=== PATIENT | female | born 1930 | race Caucasian/White ===

== ENCOUNTER → 2016-08-02 | Outpatient (REF) ==
[~2016-08-02] MED LIST: ADALAT CC30 MG PO; ALDACTONE 25MG25 M1 PO; AMLODIPINE10 MG PO; ANTIVERT 12.512.5 MG PO; ASPI325T6 PO; ASPIR-LOW81 MG PO; ASPIRIN 32325 MG/TAB PO; ASPIRIN 81M81 MG/TA2 PO; ASPIRIN E.C. 8181 MG PO; ATARAX 25MG25 MG/TAB PO; ATIVAN 0.50.5 MG/TAB PO; ATIVAN 1MG T1 MG/TAB PO; ATORVASTATIN; AVANDIA; BENADRYL25 M2 PO; BONIVA1 MG/ML MR; CEPHALEXIN500 M1 PO; CIPRO 500MG TA500 MG PO; CORDARONE200 MG/TAB PO; COZAAR 50MG50 MG/TAB PO; COZAAR100 MG PO; CRESTOR 10MG10 MG PO; DARVOCET N; DARVOCET-N-101 UDTAB PO; DRISDOL50000 IU PO; EPA FISH OIL1000 MG PO; ESTRACE0.1 MG/GM VG; FERRO-TIME325 MG PO; FLONASEALLERGY NS; FUROSEMIDE; HYDROXYZINE PAM25 MG PO; INFANTS AQU400 IU/ML PO; IRON325 M1 PO; KLONOPIN 1MG1 MG PO; LASIX 20MG TABL20 MG PO; LIPITOR 40MG TA40 MG PO; LISINOPRIL; LORAZEPAM0.5 MG PO; MACRODANTIN100 PO; MULTIPLE VITAMI1 CAP PO; MVI; NITROSTAT0.4 MG/TAB SL; NORCO 325 MG-51 TAB PO; NORVASC 10MG10 MG PO; NORVASC 5MG5 MG/TAB PO; OCCUVITE PO; OSCAL 500 TAB500 MG PO; PERCOCET 325 MG1 TA2 PO; PHENOBARBITAL PO; PHENOBARBITAL100 M1 PO; PHENOBARBITAL15 MG PO; PHENOBARBITAL16.2 MG PO; PHENOBARBITOL; PLAVIX 75MG TAB75 MG PO; PRILOSEC 20MG20 MG PO; PROBIOTIC FORMU1 CAP PO; RANEXA 500MG T500 MG PO; SENOKOT S 50 MG1 TAB PO; STOOL SOFTENER100 M2 PO; SYNTHROID 0.0.025 MG PO; TAZTIA180 PO; TOPROL XL 25MG25 MG PO; TOPROL XL 50MG50 MG PO; TRAMADOL; ULTRAM 50MG TAB50 MG PO; VISTARIL 2525 MG/CAP PO; VITAMIN C500 MG PO; VITAMIN D 50,1.25 MG PO; VITAMIN D PO; ZEBETA10 MG PO; ZESTRIL40 MG PO; ZOCOR 20MG20 MG PO; ZOCOR 40MG40 MG PO; hycosamine
== END ==
LOC: ZLAB.WCH 15:47
DX: Z01.89 Encounter for other specified special examinations (principal)

== ENCOUNTER → 2016-08-17 | Outpatient (CLI) | payer MEDICARE, BC ==
[2016-08-17 12:32] LABS: BASO % 0.6 % (0.0-2.0); EOS # 0.1 (0.0-0.7); EOS % 2.2 % (0-4.0); GRAN # 3.6 (1.4-6.5); GRAN % 69.7 % (42.2-75.2); HEMATOCRIT 41.1 % (37.0-47.0); HEMOGLOBIN 13.3 g/dl (12.5-16.0); LYMPH # 1.1 (1.2-3.4); MEAN CELL VOLUME 93 fl (80.0-100.0); MEAN CORPUSCULAR HEMOGLOBIN 30 pg (27.0-31.0); MEAN CORPUSCULAR HGB CONC 32 g/dl (33.0-37.0); MEAN PLATELET VOLUME 11.2 fl (7.4-10.4); MONO # 0.3 (0.1-0.6); MONO % 6.1 % (1.7-9.3); PLATELET COUNT 227 K/mm3 (130-400); RED BLOOD COUNT 4.43 M/mm3 (4.10-5.30); REDCELL DISTRIBUTION WIDTH-CV 13.6 % (11.5-14.5); WHITE BLOOD COUNT 5.1 K/mm3 (4.8-10.8)
[2016-08-17 12:38] LABS: PROTHROMBIN TIME 11.6 SECONDS (9.7-12.8)
[2016-08-17 12:42] LABS: ADJUSTED CALCIUM 9.5 mg/dL (8.4-10.2); ALBUMIN 4.1 gm/dL (3.5-5.0); BILIRUBIN,TOTAL 0.9 mg/dL (0.0-1.0); CALCIUM 9.6 mg/dL (8.4-10.2); CREATININE, serum 1.07 mg/dL (0.52-1.25); MAGNESIUM 1.9 mg/dL (1.6-2.3); POTASSIUM 4.1 mmol/L (3.4-5.0); TOTAL PROTEIN 7.4 gm/dL (6.4-8.2)
[2016-08-17 13:14] LABS: THYROID STIMULATING HORMONE 6.34 uIU/mL (0.465-4.680)
== END ==
LOC: COL.RAD 10:33
PROVIDERS: Internal Medicine
DX: Z01.818 Encounter for other preprocedural examination (principal); M17.12 Unilateral primary osteoarthritis, left knee; E03.4 Atrophy of thyroid (acquired); I51.7 Cardiomegaly

== ENCOUNTER → 2016-08-19 | Outpatient (REF) | LOC: ZLAB.WCH 16:43 | DX: Z01.89 Encounter for other specified special examinations (principal) ==

== ENCOUNTER → 2016-08-22 | Outpatient (REF) | LOC: ZLAB.WCH 15:17 | DX: Z01.89 Encounter for other specified special examinations (principal) ==

== ENCOUNTER 2016-09-02 13:34 | Emergency (ER) | payer MEDICARE, BC ==
[2006-07-04 08:06] VITALS: BP 131/66
[~2016-09-02] VITALS: Ht 160 cm; Wt 60.9 kg
[~2016-09-02 13:34] MED LIST changes: -ADALAT CC30 MG PO; -ANTIVERT 12.512.5 MG PO; -ASPIRIN E.C. 8181 MG PO; -PLAVIX 75MG TAB75 MG PO; -SYNTHROID 0.0.025 MG PO; -ZOCOR 20MG20 MG PO
[2016-09-02 13:37] VITALS: TEMP 97.3
[2016-09-02 15:57] LABS: BASO % 0.6 % (0.0-2.0); EOS # 0.2 (0.0-0.7); GRAN # 3.6 (1.4-6.5); GRAN % 71.1 % (42.2-75.2); LYMPH # 0.7 (1.2-3.4); LYMPH % 14.2 % (20.0-51.0); MEAN CELL VOLUME 93 fl (80.0-100.0); MEAN CORPUSCULAR HGB CONC 32 g/dl (33.0-37.0); MEAN PLATELET VOLUME 9.8 fl (7.4-10.4); MONO # 0.5 (0.1-0.6); MONO % 9.9 % (1.7-9.3); PLATELET COUNT 191 K/mm3 (130-400); RED BLOOD COUNT 3.74 M/mm3 (4.10-5.30); WHITE BLOOD COUNT 5.1 K/mm3 (4.8-10.8)
[2016-09-02 15:59] LABS: HEMATOCRIT 34.9 % (37.0-47.0); HEMOGLOBIN 11.2 g/dl (12.5-16.0); MEAN CORPUSCULAR HEMOGLOBIN 30 pg (27.0-31.0)
[2016-09-02 16:07] LABS: ADJUSTED CALCIUM 9.7 mg/dL (8.4-10.2); ALBUMIN 3.6 gm/dL (3.5-5.0); CALCIUM 9.4 mg/dL (8.4-10.2); CREATININE, serum 1.17 mg/dL (0.52-1.25); TOTAL PROTEIN 6.7 gm/dL (6.4-8.2)
[2016-09-02 18:11] LABS: PH 6 (5-8); SQUAMOUS EPITHELIAL 0-2 /hpf; URINE APPEARANCE Clear; URINE BACTERIA None Seen /hpf; URINE BILIRUBIN Negative (NEGATIVE); URINE BLOOD Negative (NEGATIVE); URINE COLOR Yellow; URINE GLUCOSE Negative (NEGATIVE); URINE KETONE Negative (NEGATIVE); URINE RBC 0-2 /hpf; URINE UROBILINOGEN Negative (NEGATIVE)
[2016-09-02] MEDS ORDERED: SYNTHROID 0.0.025 MG PO (18:11)
[2016-09-02] MEDS ORDERED: COZAAR100 MG PO (18:11)
[2016-09-02] MEDS ORDERED: CORDARONE200 MG/TAB PO (18:12)
[2016-09-02] MEDS ORDERED: ADALAT CC30 MG PO (18:13)
[2016-09-02] MEDS ORDERED: BENADRYL25 M2 PO (18:13)
[2016-09-02] MEDS ORDERED: ZOCOR 20MG20 MG PO (18:14)
[2016-09-02] MEDS ORDERED: ANTIVERT 12.512.5 MG PO (18:45)
[2016-09-02 19:07] VITALS: BP 149/70; PULSE 67
== END 2016-09-02 19:05 | disposition home or self-care (01) ==
LOC: COL.ER 13:34
PROVIDERS: Emergency Medicine
DX: E86.0 Dehydration (principal); R42 Dizziness and giddiness; R53.1 Weakness; Z91.81 History of falling; Z96.652 Presence of left artificial knee joint; I10 Essential (primary) hypertension; I25.10 Atherosclerotic heart disease of native coronary artery without angina pectoris; Z95.1 Presence of aortocoronary bypass graft; Z87.891 Personal history of nicotine dependence; Z95.0 Presence of cardiac pacemaker
CPT/HCPCS: J7040

== ENCOUNTER 2016-10-12 08:19 | Emergency (ER) | payer MEDICARE, BC ==
[2006-07-04 08:06] VITALS: BP 131/66
[~2016-10-12] VITALS: Ht 160 cm; Wt 60.5 kg
[~2016-10-12 08:19] MED LIST changes: +ADALAT CC30 MG PO; +ANTIVERT 12.512.5 MG PO; +SYNTHROID 0.0.025 MG PO; +ZOCOR 20MG20 MG PO
[2016-10-12 08:24] VITALS: TEMP 97.6
[2016-10-12 09:01] LABS: BASO % 0.5 % (0.0-2.0); EOS # 0.2 (0.0-0.7); EOS % 4.7 % (0-4.0); GRAN # 2.4 (1.4-6.5); GRAN % 64.9 % (42.2-75.2); LYMPH # 0.8 (1.2-3.4); LYMPH % 20.9 % (20.0-51.0); MEAN CELL VOLUME 95 fl (80.0-100.0); MEAN CORPUSCULAR HGB CONC 32 g/dl (33.0-37.0); MEAN PLATELET VOLUME 10.4 fl (7.4-10.4); MONO # 0.3 (0.1-0.6); MONO % 8.5 % (1.7-9.3); PLATELET COUNT 145 K/mm3 (130-400); RED BLOOD COUNT 3.87 M/mm3 (4.10-5.30); WHITE BLOOD COUNT 3.6 K/mm3 (4.8-10.8)
[2016-10-12 09:08] LABS: HEMATOCRIT 36.7 % (37.0-47.0); HEMOGLOBIN 11.6 g/dl (12.5-16.0); MEAN CORPUSCULAR HEMOGLOBIN 30 pg (27.0-31.0)
[2016-10-12 09:16] LABS: ADJUSTED CALCIUM 9.4 mg/dL (8.4-10.2); ALANINE AMINOTRANSFERASE 44 U/L (9-52); ALBUMIN 3.7 gm/dL (3.5-5.0); ALKALINE PHOSPHATASE 95 U/L (50-136); ANION GAP 10 mmol/L (7-16); BILIRUBIN,TOTAL 0.8 mg/dL (0.0-1.0); BLOOD UREA NITROGEN 25 mg/dL (7-17); CALCIUM 9.2 mg/dL (8.4-10.2); CARBON DIOXIDE 28 mmol/L (22-30); CHLORIDE 102 mmol/L (98-107); CREATININE, serum 1.05 mg/dL (0.52-1.25); GLUCOSE 103 mg/dL (74-106); POTASSIUM 3.7 mmol/L (3.4-5.0); SODIUM 140 mmol/L (137-145); TOTAL PROTEIN 6.6 gm/dL (6.4-8.2)
[2016-10-12 09:26] LABS: TROPONIN-I < 0.012 ng/mL (0.000-0.034)
[2016-10-12 12:00] VITALS: BP 182/92; PULSE 73
== END 2016-10-12 13:00 | disposition home or self-care (01) ==
LOC: COL.ER 08:19
PROVIDERS: Physician Assistant
DX: S01.411A Laceration without foreign body of right cheek and temporomandibular area, initial encounter (principal); S00.83XA Contusion of other part of head, initial encounter; W18.39XA Other fall on same level, initial encounter; Y92.009 Unspecified place in unspecified non-institutional (private) residence as the place of occurrence of the external cause; I10 Essential (primary) hypertension

== ENCOUNTER → 2016-10-19 | Emergency (ER) | payer MEDICARE, BC ==
[~2016-10-19] MED LIST changes: +ASPIRIN E.C. 8181 MG PO; +PLAVIX 75MG TAB75 MG PO
[2016-10-19 11:10] VITALS: BP 136/89; PULSE 82
== END ==
LOC: COL.ER 10:12
DX: Z48.02 Encounter for removal of sutures (principal)

== ENCOUNTER → 2016-12-05 | Outpatient (CLI) | payer MEDICARE, BC | LOC: COL.RAD 07:37 | DX: M25.78 Osteophyte, vertebrae (principal) ==

== ENCOUNTER 2016-12-06 10:30 | Outpatient (RCR) | payer MEDICARE, BC ==
[~2016-12-06 10:30] MED LIST changes: -ASPIRIN E.C. 8181 MG PO; -PLAVIX 75MG TAB75 MG PO
[2016-12-19] MEDS ORDERED: ASPIRIN E.C. 8181 MG PO (10:12)
[2016-12-28] MEDS ORDERED: PLAVIX 75MG TAB75 MG PO (13:09)
== END 2017-02-14 | disposition still patient (30) ==
LOC: MKS.ESL.PT
DX: R42 Dizziness and giddiness (principal); R26.81 Unsteadiness on feet; R26.89 Other abnormalities of gait and mobility
CPT/HCPCS: G8990-GP; G8991-GP

== ENCOUNTER → 2016-12-13 | Outpatient (CLI) | payer MEDICARE, BC ==
[~2016-12-13] MED LIST changes: +ASPIRIN E.C. 8181 MG PO; +PLAVIX 75MG TAB75 MG PO
== END ==
LOC: MHCPAIN 09:28
DX: G89.29 Other chronic pain (principal); M47.817 Spondylosis without myelopathy or radiculopathy, lumbosacral region; M54.16 Radiculopathy, lumbar region; M53.3 Sacrococcygeal disorders, not elsewhere classified; M96.1 Postlaminectomy syndrome, not elsewhere classified
CPT/HCPCS: G0463

== ENCOUNTER → 2016-12-15 | Outpatient (CLI) | payer MEDICARE, BC | LOC: MHCPAIN 09:19 | DX: M53.3 Sacrococcygeal disorders, not elsewhere classified (principal) | CPT/HCPCS: G0260; J1040; Q9967 ==

== ENCOUNTER → 2016-12-21 | Outpatient (CLI) | payer MEDICARE, BC ==
[2006-07-04 08:06] VITALS: BP 131/66
[~2016-12-21] VITALS: Ht 160 cm; Wt 61.4 kg
== END ==
LOC: COL.RAD 12-15 09:12
DX: Z53.9 Procedure and treatment not carried out, unspecified reason (principal)

== ENCOUNTER → 2016-12-28 | Outpatient (CLI) | payer MEDICARE, BC ==
[2006-07-04 08:06] VITALS: BP 131/66
[~2016-12-28] VITALS: Ht 160 cm; Wt 57.6 kg
[2016-12-28 13:16] VITALS: BP 155/67; PULSE 77
[2016-12-28 14:50] VITALS: BP 151/45; PULSE 63
[2016-12-28 14:57] VITALS: BP 136/43; PULSE 65
[2016-12-28 15:15] VITALS: BP 139/45; PULSE 67
[2016-12-28 15:30] VITALS: BP 130/56; PULSE 63
== END ==
LOC: COL.RAD 12:51
DX: M47.816 Spondylosis without myelopathy or radiculopathy, lumbar region (principal); M48.06 Spinal stenosis, lumbar region; M51.36 Other intervertebral disc degeneration, lumbar region
CPT/HCPCS: Q9965

== ENCOUNTER → 2017-01-16 | Outpatient (CLI) | payer MEDICARE, BC | LOC: MHCPAIN 09:35 | DX: G89.29 Other chronic pain (principal); M47.817 Spondylosis without myelopathy or radiculopathy, lumbosacral region; M54.16 Radiculopathy, lumbar region; M53.3 Sacrococcygeal disorders, not elsewhere classified; M96.1 Postlaminectomy syndrome, not elsewhere classified | CPT/HCPCS: G0463 ==

== ENCOUNTER → 2017-01-26 | Outpatient (CLI) | payer MEDICARE, BC | LOC: MHCPAIN 08:13 | DX: M54.16 Radiculopathy, lumbar region (principal) | CPT/HCPCS: J1040; J1100; Q9967 ==

== ENCOUNTER → 2017-02-15 | Outpatient (CLI) | payer MEDICARE, BC | LOC: MHCPAIN 10:28 | DX: G89.29 Other chronic pain (principal); M47.817 Spondylosis without myelopathy or radiculopathy, lumbosacral region; M54.16 Radiculopathy, lumbar region; M53.3 Sacrococcygeal disorders, not elsewhere classified; M96.1 Postlaminectomy syndrome, not elsewhere classified; Z87.891 Personal history of nicotine dependence | CPT/HCPCS: G0463 ==

== ENCOUNTER → 2017-04-26 | Outpatient (CLI) | payer MEDICARE, BC | LOC: MHCPAIN 12:13 | DX: G89.29 Other chronic pain (principal); M47.817 Spondylosis without myelopathy or radiculopathy, lumbosacral region; M54.16 Radiculopathy, lumbar region; M53.3 Sacrococcygeal disorders, not elsewhere classified; M96.1 Postlaminectomy syndrome, not elsewhere classified | CPT/HCPCS: G0463 ==

== ENCOUNTER → 2017-05-24 | Outpatient (CLI) | payer MEDICARE, BC | LOC: MHCPAIN 13:11 | DX: G89.29 Other chronic pain (principal); M47.27 Other spondylosis with radiculopathy, lumbosacral region; M53.3 Sacrococcygeal disorders, not elsewhere classified; M96.1 Postlaminectomy syndrome, not elsewhere classified; Z87.891 Personal history of nicotine dependence; Z79.82 Long term (current) use of aspirin | CPT/HCPCS: G0463 ==

== ENCOUNTER → 2017-08-22 | Outpatient (CLI) | payer MEDICARE, BC | LOC: MHCPAIN 13:13 | DX: G89.29 Other chronic pain (principal); M47.27 Other spondylosis with radiculopathy, lumbosacral region; M53.3 Sacrococcygeal disorders, not elsewhere classified; M96.1 Postlaminectomy syndrome, not elsewhere classified; Z87.891 Personal history of nicotine dependence | CPT/HCPCS: G0463 ==

== ENCOUNTER 2017-08-28 13:54 | Outpatient (CLI) | payer MEDICARE, BC ==
[2006-07-04 08:06] VITALS: BP 131/66
[2017-08-28 15:51] VITALS: BP 166/57; PULSE 59; TEMP 97.5
== END 2017-08-28 16:09 | disposition home or self-care (01) ==
LOC: EUO 13:54
DX: N18.3 Chronic kidney disease, stage 3 (moderate) (principal); D63.1 Anemia in chronic kidney disease; Z88.5 Allergy status to narcotic agent; Z88.2 Allergy status to sulfonamides; Z88.8 Allergy status to other drugs, medicaments and biological substances; Z79.82 Long term (current) use of aspirin; Z79.891 Long term (current) use of opiate analgesic
CPT/HCPCS: J2916

== ENCOUNTER → 2017-09-21 | Outpatient (CLI) | payer MEDICARE, BC | LOC: MHCPAIN 08:20 | DX: M47.817 Spondylosis without myelopathy or radiculopathy, lumbosacral region (principal) | CPT/HCPCS: J1040; Q9967 ==

== ENCOUNTER → 2017-12-19 | Outpatient (REF) ==
[2017-12-19 15:27] LABS: THYROID STIMULATING HORMONE 0.608 uIU/mL (0.465-4.680)
== END ==
LOC: ZLAB.WCH 14:24
PROVIDERS: Nurse Practitioner Family
DX: Z01.89 Encounter for other specified special examinations (principal)

== ENCOUNTER → 2017-12-28 | Outpatient (REF) ==
[2017-12-28 14:25] LABS: IRON,SERUM 40 ug/dL (35-150)
[2017-12-28 14:34] LABS: TOTAL IRON BINDING CAPACITY 390 ug/dL (265-497)
[2017-12-28 15:02] LABS: FERRITIN 27 ng/mL (11-264)
== END ==
LOC: ZLAB.WCH 14:13
PROVIDERS: Internal Medicine
DX: Z01.89 Encounter for other specified special examinations (principal)

== ENCOUNTER 2018-01-23 14:54 | Outpatient (CLI) | payer MEDICARE, BC ==
[2006-07-04 08:06] VITALS: BP 131/66
[~2018-01-23] VITALS: Ht 160 cm; Wt 58.0 kg
[2018-01-23 15:23] VITALS: BP 157/59; PULSE 61; TEMP 98.1
[2018-01-23] MEDS ORDERED: BYSTOLIC10 MG PO (15:51)
[2018-01-23] MEDS ORDERED: NORCO 325 MG-51 TAB PO (15:52)
[2018-01-23] MEDS ORDERED: MIRALAX PA17 GM/Dose PO (15:52)
[2018-01-23] MEDS ORDERED: FERRO-TIME325 MG PO (15:53)
[2018-01-23] MEDS ORDERED: NEURONTIN300 MG/CAP PO (15:54)
[2018-01-23] MEDS ORDERED: ATIVAN 0.50.5 MG/TAB PO (15:58)
[2018-01-23] MEDS ORDERED: VTAMINC250TA (16:01)
[2018-01-23] MEDS ORDERED: D3-5050000 IU (16:02)
[2018-01-23] MEDS ORDERED: APRESOLINE 25MG25 MG PO (16:03)
[2018-01-23] MEDS ORDERED: FLONASEALLERGY NS (16:03)
[2018-01-23] MEDS ORDERED: CARDIZEM CD 24240 MG PO (16:03)
[2018-01-23] MEDS ORDERED: PRESERVISION1 SGL PO (16:04)
== END 2018-01-23 17:27 | disposition home or self-care (01) ==
LOC: EUO 14:54
DX: M81.0 Age-related osteoporosis without current pathological fracture (principal)
CPT/HCPCS: J3489

== ENCOUNTER 2018-01-25 08:13 | Emergency (ER) | payer MEDICARE, BC ==
[2006-07-04 08:06] VITALS: BP 131/66
[~2018-01-25] VITALS: Ht 160 cm; Wt 56.4 kg
[~2018-01-25 08:13] MED LIST changes: +APRESOLINE 25MG25 MG PO; +BYSTOLIC10 MG PO; +CARDIZEM CD 24240 MG PO; +D3-5050000 IU; +MIRALAX PA17 GM/Dose PO; +NEURONTIN300 MG/CAP PO; +PRESERVISION1 SGL PO; +VTAMINC250TA
[2018-01-25 08:15] VITALS: TEMP 98.3
[2018-01-25 09:03] LABS: MEAN CELL VOLUME 94 fl (80.0-100.0); MEAN CORPUSCULAR HGB CONC 32 g/dl (33.0-37.0); MEAN PLATELET VOLUME 9.6 fl (7.4-10.4); PLATELET COUNT 120 K/mm3 (130-400); RED BLOOD COUNT 3.14 M/mm3 (4.10-5.30); REDCELL DISTRIBUTION WIDTH-CV 14.7 % (11.5-14.5)
[2018-01-25 09:04] LABS: HEMATOCRIT 29.4 % (37.0-47.0); HEMOGLOBIN 9.3 g/dl (12.5-16.0); MEAN CORPUSCULAR HEMOGLOBIN 30 pg (27.0-31.0)
[2018-01-25 09:09] LABS: INR 0.9 (0.8-3.0); PROTHROMBIN TIME 10.5 SECONDS (9.7-12.8)
[2018-01-25 09:12] LABS: PARTIAL THROMBOPLASTIN TIME 32.4 SECONDS (26.0-37.0)
[2018-01-25 09:16] LABS: ALANINE AMINOTRANSFERASE 23 U/L (9-52); ALBUMIN 3.4 gm/dL (3.5-5.0); ALKALINE PHOSPHATASE 59 U/L (50-136); ANION GAP 7 mmol/L (7-16); AST,SGOT 22 U/L (15-37); BILIRUBIN,TOTAL 0.3 mg/dL (0.0-1.0); BLOOD UREA NITROGEN 25 mg/dL (7-17); C-REACTIVE PROTEIN 0.8 mg/dL (0.0-0.9); CALCIUM 8.9 mg/dL (8.4-10.2); CARBON DIOXIDE 27 mmol/L (22-30); CHLORIDE 98 mmol/L (98-107); CREATININE, serum 1.23 mg/dL (0.52-1.25); GLUCOSE 131 mg/dL (74-106); POTASSIUM 4.2 mmol/L (3.4-5.0); SODIUM 132 mmol/L (137-145); TOTAL PROTEIN 6.1 gm/dL (6.4-8.2)
[2018-01-25 09:27] LABS: TROPONIN-I < 0.012 ng/mL (0.000-0.034)
[2018-01-25 10:16] LABS: COLLECTION METHOD CLEAN CATCH
[2018-01-25 10:27] LABS: PH 6 (5-8); SQUAMOUS EPITHELIAL 0-2 /hpf; URINE APPEARANCE Clear; URINE BACTERIA None Seen /hpf; URINE BILIRUBIN Negative (NEGATIVE); URINE BLOOD Negative (NEGATIVE); URINE COLOR Amber; URINE GLUCOSE Negative (NEGATIVE); URINE KETONE Negative (NEGATIVE); URINE LEUKOCYTE ESTERASE Negative (NEGATIVE); URINE NITRATE Positive (NEGATIVE); URINE PROTEIN(semi-quant) 2+ (NEGATIVE); URINE RBC 0-2 /hpf; URINE UROBILINOGEN >=4.0 mg/dL (NEGATIVE)
[2018-01-25 13:03] LABS: BASO % 0.5 % (0.0-2.0); EOS # 0.1 (0.0-0.7); EOS % 1.4 % (0-4.0); GRAN # 3.3 (1.4-6.5); GRAN % 78.7 % (42.2-75.2); LYMPH # 0.5 (1.2-3.4); LYMPH % 11.1 % (20.0-51.0); MEAN CELL VOLUME 94 fl (80.0-100.0); MEAN CORPUSCULAR HGB CONC 32 g/dl (33.0-37.0); MEAN PLATELET VOLUME 9.2 fl (7.4-10.4); MONO # 0.3 (0.1-0.6); MONO % 8.1 % (1.7-9.3); PLATELET COUNT 121 K/mm3 (130-400); RED BLOOD COUNT 3.26 M/mm3 (4.10-5.30); REDCELL DISTRIBUTION WIDTH-CV 14.6 % (11.5-14.5)
[2018-01-25 13:05] LABS: HEMATOCRIT 30.5 % (37.0-47.0); HEMOGLOBIN 9.7 g/dl (12.5-16.0); MEAN CORPUSCULAR HEMOGLOBIN 30 pg (27.0-31.0)
[2018-01-25 15:29] VITALS: BP 147/77; PULSE 69
[2018-01-25] MEDS ORDERED: NORCO 325 MG-51 TAB PO (15:56)
== END 2018-01-25 16:18 | disposition home or self-care (01) ==
LOC: COL.ER 08:13
PROVIDERS: Emergency Medicine; Physician Assistant
DX: M25.511 Pain in right shoulder (principal); M54.2 Cervicalgia; E78.5 Hyperlipidemia, unspecified; K21.9 Gastro-esophageal reflux disease without esophagitis; M19.90 Unspecified osteoarthritis, unspecified site; I10 Essential (primary) hypertension; I25.10 Atherosclerotic heart disease of native coronary artery without angina pectoris; I73.9 Peripheral vascular disease, unspecified; Z79.02 Long term (current) use of antithrombotics/antiplatelets; Z90.49 Acquired absence of other specified parts of digestive tract; Z90.89 Acquired absence of other organs; Z87.891 Personal history of nicotine dependence

== ENCOUNTER → 2018-02-09 | Outpatient (CLI) | payer MEDICARE, BC | LOC: COL.RAD 13:38 | DX: M75.121 Complete rotator cuff tear or rupture of right shoulder, not specified as traumatic (principal); M62.511 Muscle wasting and atrophy, not elsewhere classified, right shoulder; M89.311 Hypertrophy of bone, right shoulder; Z95.0 Presence of cardiac pacemaker ==

== ENCOUNTER 2018-03-27 13:43 | Inpatient (IN) | payer MEDICARE, BC ==
[~2018-03-27] VITALS: Ht 160 cm; Wt 54.8 kg
[2018-03-27 15:02] LABS: BASO % 0.3 % (0.0-2.0); EOS % 0.8 % (0-4.0); GRAN # 2.7 (1.4-6.5); HEMOGLOBIN 10.2 g/dl (12.5-16.0); LYMPH # 0.6 (1.2-3.4); LYMPH % 16.5 % (20.0-51.0); MEAN CELL VOLUME 87 fl (80.0-100.0); MEAN CORPUSCULAR HEMOGLOBIN 28 pg (27.0-31.0); MEAN CORPUSCULAR HGB CONC 32 g/dl (33.0-37.0); MEAN PLATELET VOLUME 9.4 fl (7.4-10.4); MONO # 0.4 (0.1-0.6); MONO % 10.1 % (1.7-9.3); PLATELET COUNT 148 K/mm3 (130-400); RED BLOOD COUNT 3.69 M/mm3 (4.10-5.30); REDCELL DISTRIBUTION WIDTH-CV 13.9 % (11.5-14.5)
[2018-03-27 15:05] LABS: INR 0.9 (0.8-3.0); PROTHROMBIN TIME 10.6 SECONDS (9.7-12.8)
[2018-03-27 15:08] LABS: PARTIAL THROMBOPLASTIN TIME 32.7 SECONDS (26.0-37.0)
[2018-03-27 15:10] LABS: ALBUMIN 3.7 gm/dL (3.5-5.0); BILIRUBIN,TOTAL 0.3 mg/dL (0.0-1.0); CALCIUM 8.9 mg/dL (8.4-10.2); CREATININE, serum 1.1 mg/dL (0.52-1.25); POTASSIUM 4.3 mmol/L (3.4-5.0); TOTAL PROTEIN 6.5 gm/dL (6.4-8.2)
[2018-03-27] MEDS ORDERED: COREG 25MG25 MG/TAB PO (15:18)
[2018-03-27] MEDS ORDERED: SYNTHROID0.125 MG/T PO (15:19)
[2018-03-27] MEDS ORDERED: ATIVAN 0.50.5 MG/TAB PO (15:23)
[2018-03-27 15:52] VITALS: BP 179/50; PULSE 65; TEMP 98.2
[2018-03-27 16:18] VITALS: BP 157/59
[2018-03-27 16:36] LABS: COLLECTION METHOD CLEAN CATCH
[2018-03-27 17:15] LABS: SQUAMOUS EPITHELIAL 0-2 /hpf; URINE BACTERIA None Seen /hpf; URINE RBC 0-2 /hpf; URINE WBC 0-2 /hpf
[2018-03-27 17:17] LABS: PH 8 (5-8); URINE APPEARANCE Clear; URINE BILIRUBIN Negative (NEGATIVE); URINE BLOOD Negative (NEGATIVE); URINE COLOR Straw; URINE GLUCOSE Negative (NEGATIVE); URINE KETONE Negative (NEGATIVE); URINE LEUKOCYTE ESTERASE Negative (NEGATIVE); URINE NITRATE Negative (NEGATIVE); URINE PROTEIN(semi-quant) 2+ (NEGATIVE); URINE UROBILINOGEN Negative (NEGATIVE)
[2018-03-27 21:10] VITALS: BP 186/69; PULSE 64; TEMP 97.2
[2018-03-27 21:50] VITALS: BP 164/74
[2018-03-27 23:11] VITALS: BP 156/58
[2018-03-28] VITALS (8 sets, daily range): BP systolic 116–183; BP diastolic 45–68; PULSE 60–95; TEMP 97.8–98.9
[2018-03-28 06:53] LABS: BASO % 0.3 % (0.0-2.0); EOS % 0.6 % (0-4.0); GRAN # 2.5 (1.4-6.5); GRAN % 71.7 % (42.2-75.2); HEMOGLOBIN 9.9 g/dl (12.5-16.0); LYMPH # 0.6 (1.2-3.4); LYMPH % 16.1 % (20.0-51.0); MEAN CELL VOLUME 86 fl (80.0-100.0); MEAN CORPUSCULAR HEMOGLOBIN 28 pg (27.0-31.0); MEAN CORPUSCULAR HGB CONC 32 g/dl (33.0-37.0); MEAN PLATELET VOLUME 9.3 fl (7.4-10.4); MONO # 0.4 (0.1-0.6); MONO % 11.3 % (1.7-9.3); PLATELET COUNT 142 K/mm3 (130-400); RED BLOOD COUNT 3.59 M/mm3 (4.10-5.30); REDCELL DISTRIBUTION WIDTH-CV 13.8 % (11.5-14.5)
[2018-03-28 07:03] LABS: CALCIUM 8.5 mg/dL (8.4-10.2); CREATININE, serum 0.97 mg/dL (0.52-1.25); POTASSIUM 3.9 mmol/L (3.4-5.0)
[2018-03-29] VITALS (8 sets, daily range): BP systolic 134–188; BP diastolic 55–87; PULSE 60–75; TEMP 97.8–98.4
[2018-03-29 07:37] LABS: BASO % 0.3 % (0.0-2.0); EOS % 0.8 % (0-4.0); GRAN # 2.9 (1.4-6.5); GRAN % 75.9 % (42.2-75.2); HEMATOCRIT 32.5 % (37.0-47.0); LYMPH # 0.6 (1.2-3.4); LYMPH % 14.5 % (20.0-51.0); MEAN CELL VOLUME 88 fl (80.0-100.0); MEAN CORPUSCULAR HEMOGLOBIN 27 pg (27.0-31.0); MEAN CORPUSCULAR HGB CONC 31 g/dl (33.0-37.0); MEAN PLATELET VOLUME 9.8 fl (7.4-10.4); MONO # 0.3 (0.1-0.6); MONO % 8.2 % (1.7-9.3); PLATELET COUNT 160 K/mm3 (130-400); RED BLOOD COUNT 3.69 M/mm3 (4.10-5.30)
[2018-03-29 08:00] LABS: CREATININE, serum 1.07 mg/dL (0.52-1.25); POTASSIUM 3.9 mmol/L (3.4-5.0)
[2018-03-29] MEDS ORDERED: PROTONIX 40MG T40 MG PO (11:37)
== END 2018-03-29 12:03 | disposition home or self-care (01) | DRG 384 ==
LOC: MEDICAL 13:43
PROVIDERS: Internal Medicine Gastroenterology; Internal Medicine Nephrology
PROC: 0DBN8ZX Excision of Sigmoid Colon, Via Natural or Artificial Opening Endoscopic, Diagnostic (ICD-10-PCS; 2018-03-28)
PROC: 0DB68ZX Excision of Stomach, Via Natural or Artificial Opening Endoscopic, Diagnostic (ICD-10-PCS; principal; 2018-03-28 14:00)
PROC: 0DBK8ZX Excision of Ascending Colon, Via Natural or Artificial Opening Endoscopic, Diagnostic (ICD-10-PCS; 2018-03-28 14:00)
DX: K25.7 Chronic gastric ulcer without hemorrhage or perforation (principal); K29.30 Chronic superficial gastritis without bleeding; D12.5 Benign neoplasm of sigmoid colon; K57.30 Diverticulosis of large intestine without perforation or abscess without bleeding; I25.10 Atherosclerotic heart disease of native coronary artery without angina pectoris; I12.9 Hypertensive chronic kidney disease with stage 1 through stage 4 chronic kidney disease, or unspecified chronic kidney disease; N18.3 Chronic kidney disease, stage 3 (moderate); I48.91 Unspecified atrial fibrillation; Z95.0 Presence of cardiac pacemaker; Z95.5 Presence of coronary angioplasty implant and graft; D50.9 Iron deficiency anemia, unspecified; Z95.1 Presence of aortocoronary bypass graft; D64.9 Anemia, unspecified
CPT/HCPCS: J2405; J2704; J3010

== ENCOUNTER → 2018-06-18 | Outpatient (CLI) | payer MEDICARE, BC ==
[~2018-06-18] MED LIST changes: +COREG 25MG25 MG/TAB PO; +PROTONIX 40MG T40 MG PO; +SYNTHROID0.125 MG/T PO
[2018-06-18 11:32] LABS: MEAN CELL VOLUME 84 fl (80.0-100.0); MEAN CORPUSCULAR HEMOGLOBIN 26 pg (27.0-31.0); MEAN CORPUSCULAR HGB CONC 31 g/dl (33.0-37.0); MEAN PLATELET VOLUME 9.2 fl (7.4-10.4); PLATELET COUNT 205 K/mm3 (130-400); RED BLOOD COUNT 4.17 M/mm3 (4.10-5.30); REDCELL DISTRIBUTION WIDTH-CV 18.8 % (11.5-14.5)
[2018-06-18 11:34] LABS: HEMATOCRIT 35.2 % (37.0-47.0)
[2018-06-18 11:37] LABS: PROTHROMBIN TIME 11.7 SECONDS (9.7-12.8)
[2018-06-18 11:46] LABS: CREATININE, serum 1.19 mg/dL (0.52-1.25); POTASSIUM 4.4 mmol/L (3.4-5.0)
== END ==
LOC: COL.LAB 10:52
PROVIDERS: Internal Medicine Interventional Cardiology
DX: I48.0 Paroxysmal atrial fibrillation (principal); Z95.810 Presence of automatic (implantable) cardiac defibrillator

== ENCOUNTER 2018-07-14 07:55 | Emergency (ER) | payer MEDICARE, BC ==
[2006-07-04 08:06] VITALS: BP 131/66
[~2018-07-14] VITALS: Ht 160 cm; Wt 54.1 kg
[2018-07-14 07:59] VITALS: TEMP 97.4
[2018-07-14] MEDS ORDERED: ASPIRIN 32325 MG/TAB PO (08:14)
[2018-07-14] MEDS ORDERED: ERGOCAL PO (08:18)
[2018-07-14] MEDS ORDERED: NORCO 325 MG-51 TAB PO (08:19)
[2018-07-14] MEDS ORDERED: SYNTHROID 0.0.025 MG PO (08:21)
[2018-07-14] MEDS ORDERED: COZAAR100 MG PO (08:22)
[2018-07-14] MEDS ORDERED: KAPSPARGO SPRIN50 MG PO (08:24)
[2018-07-14] MEDS ORDERED: PRILOSEC 20MG20 MG PO (08:25)
[2018-07-14] MEDS ORDERED: KLONOPIN 1MG1 MG PO (08:25)
[2018-07-14] MEDS ORDERED: CATAPRES 0.1MG0.1 MG PO (08:28)
[2018-07-14 08:39] LABS: COLLECTION METHOD CLEAN CATCH
[2018-07-14 08:44] LABS: PH 8 (5-8); SQUAMOUS EPITHELIAL 0-2 /hpf; URINE APPEARANCE Clear; URINE BACTERIA Rare /hpf; URINE BILIRUBIN Negative (NEGATIVE); URINE BLOOD Negative (NEGATIVE); URINE COLOR Straw; URINE GLUCOSE Negative (NEGATIVE); URINE KETONE Negative (NEGATIVE); URINE LEUKOCYTE ESTERASE Negative (NEGATIVE); URINE NITRATE Negative (NEGATIVE); URINE PROTEIN(semi-quant) 1+ (NEGATIVE); URINE RBC 0-2 /hpf; URINE UROBILINOGEN Negative (NEGATIVE)
[2018-07-14 09:03] LABS: EOS % 0.7 % (0-4.0); GRAN # 4.7 (1.4-6.5); GRAN % 75.9 % (42.2-75.2); LYMPH # 0.8 (1.2-3.4); LYMPH % 12.4 % (20.0-51.0); MEAN CELL VOLUME 86 fl (80.0-100.0); MEAN CORPUSCULAR HGB CONC 30 g/dl (33.0-37.0); MEAN PLATELET VOLUME 9.5 fl (7.4-10.4); MONO # 0.6 (0.1-0.6); MONO % 10.3 % (1.7-9.3); PLATELET COUNT 177 K/mm3 (130-400); RED BLOOD COUNT 3.69 M/mm3 (4.10-5.30); REDCELL DISTRIBUTION WIDTH-CV 16.7 % (11.5-14.5)
[2018-07-14 09:05] LABS: HEMATOCRIT 31.7 % (37.0-47.0); HEMOGLOBIN 9.6 g/dl (12.5-16.0); MEAN CORPUSCULAR HEMOGLOBIN 26 pg (27.0-31.0)
[2018-07-14 09:19] LABS: ALBUMIN 3.3 gm/dL (3.5-5.0); BILIRUBIN,TOTAL 0.5 mg/dL (0.0-1.0); CALCIUM 9.3 mg/dL (8.4-10.2); CREATININE, serum 1.25 mg/dL (0.52-1.25); POTASSIUM 3.9 mmol/L (3.4-5.0); TOTAL PROTEIN 5.8 gm/dL (6.4-8.2)
[2018-07-14 10:40] VITALS: BP 149/74; PULSE 63
== END 2018-07-14 10:42 | disposition home or self-care (01) ==
LOC: COL.ER 07:55
PROVIDERS: Family Medicine; Nurse Practitioner Primary Care
DX: I10 Essential (primary) hypertension (principal); D64.9 Anemia, unspecified; E03.9 Hypothyroidism, unspecified; K21.9 Gastro-esophageal reflux disease without esophagitis; N32.89 Other specified disorders of bladder; F41.9 Anxiety disorder, unspecified; E78.5 Hyperlipidemia, unspecified; Z79.82 Long term (current) use of aspirin; Z90.710 Acquired absence of both cervix and uterus; Z90.49 Acquired absence of other specified parts of digestive tract; Z90.89 Acquired absence of other organs; Z87.891 Personal history of nicotine dependence; Z95.0 Presence of cardiac pacemaker; Z95.1 Presence of aortocoronary bypass graft

== ENCOUNTER → 2018-07-26 | Outpatient (CLI) | payer MEDICARE, BC ==
[~2018-07-26] MED LIST changes: +CATAPRES 0.1MG0.1 MG PO; +ERGOCAL PO; +KAPSPARGO SPRIN50 MG PO
== END ==
LOC: COL.RAD 08:44
DX: Q89.09 Congenital malformations of spleen (principal)

== ENCOUNTER → 2018-08-09 | Outpatient (REF) ==
[2018-08-09 18:06] LABS: IRON,SERUM 17 ug/dL (35-150)
[2018-08-09 18:16] LABS: TOTAL IRON BINDING CAPACITY 373 ug/dL (265-497)
[2018-08-09 18:41] LABS: THYROID STIMULATING HORMONE < 0.015 uIU/mL (0.465-4.680)
[2018-08-09 18:44] LABS: FERRITIN 20 ng/mL (11-264)
== END ==
LOC: ZLAB.WCH 17:46
PROVIDERS: Internal Medicine
DX: Z01.89 Encounter for other specified special examinations (principal)

== ENCOUNTER → 2018-09-24 | Outpatient (CLI) | payer MEDICARE, BC | LOC: COL.CARD 11:44 | DX: I10 Essential (primary) hypertension (principal) ==

== ENCOUNTER → 2018-10-29 | Outpatient (REF) | LOC: ZLAB.WCH 16:20 | DX: Z01.89 Encounter for other specified special examinations (principal) ==

== ENCOUNTER 2018-11-27 08:32 | Emergency (ER) | payer MEDICARE, BC ==
[2006-07-04 08:06] VITALS: BP 131/66
[~2018-11-27] VITALS: Ht 162.6 cm; Wt 51.8 kg
[2018-11-27 08:41] VITALS: TEMP 97
[2018-11-27 09:05] LABS: BASO % 0.5 % (0.0-2.0); EOS # 0.1 (0.0-0.7); EOS % 1.8 % (0-4.0); GRAN # 3.4 (1.4-6.5); GRAN % 76.5 % (42.2-75.2); HEMOGLOBIN 9.8 g/dl (12.5-16.0); LYMPH # 0.6 (1.2-3.4); LYMPH % 13.4 % (20.0-51.0); MEAN CELL VOLUME 87 fl (80.0-100.0); MEAN CORPUSCULAR HEMOGLOBIN 27 pg (27.0-31.0); MEAN CORPUSCULAR HGB CONC 31 g/dl (33.0-37.0); MEAN PLATELET VOLUME 9.1 fl (7.4-10.4); MONO # 0.3 (0.1-0.6); MONO % 7.3 % (1.7-9.3); PLATELET COUNT 160 K/mm3 (130-400); RED BLOOD COUNT 3.62 M/mm3 (4.10-5.30); REDCELL DISTRIBUTION WIDTH-CV 20.8 % (11.5-14.5)
[2018-11-27 09:06] LABS: HEMATOCRIT 31.5 % (37.0-47.0)
[2018-11-27 09:20] LABS: ALBUMIN 3.2 gm/dL (3.5-5.0); BILIRUBIN,TOTAL 0.3 mg/dL (0.0-1.0); CALCIUM 8.8 mg/dL (8.4-10.2); CREATININE, serum 1.19 (0.52-1.25); POTASSIUM 4.3 mmol/L (3.4-5.0); TOTAL PROTEIN 5.9 gm/dL (6.4-8.2)
[2018-11-27 11:21] VITALS: BP 149/60; PULSE 61
== END 2018-11-27 11:21 | disposition home or self-care (01) ==
LOC: COL.ER 08:32
PROVIDERS: Family Medicine
DX: S52.501A Unspecified fracture of the lower end of right radius, initial encounter for closed fracture (principal); S62.306A Unspecified fracture of fifth metacarpal bone, right hand, initial encounter for closed fracture; D64.9 Anemia, unspecified; R42 Dizziness and giddiness; W18.39XA Other fall on same level, initial encounter; Z79.82 Long term (current) use of aspirin

== ENCOUNTER → 2019-01-18 | Outpatient (CLI) | payer MEDICARE, BC ==
[2019-01-18 11:21] LABS: INR 0.9 (0.8-3.0)
== END ==
LOC: COL.LAB 09:56
PROVIDERS: Internal Medicine
DX: Z01.812 Encounter for preprocedural laboratory examination (principal); I65.23 Occlusion and stenosis of bilateral carotid arteries; I25.10 Atherosclerotic heart disease of native coronary artery without angina pectoris

== ENCOUNTER → 2019-01-25 | Outpatient (REF) ==
[~2019-01-25] MED LIST changes: -ERGOCAL PO; +ERGOCALCIFER50000 IU PO; -KAPSPARGO SPRIN50 MG PO
[2019-01-25 16:34] LABS: COLLECTION METHOD CLEAN CATCH
[2019-01-25 16:45] LABS: PH 5 (5-8); SQUAMOUS EPITHELIAL 0-2 /hpf; URINE APPEARANCE Clear; URINE BACTERIA None Seen /hpf; URINE BILIRUBIN Negative (NEGATIVE); URINE BLOOD Negative (NEGATIVE); URINE COLOR Yellow; URINE GLUCOSE Negative (NEGATIVE); URINE KETONE Negative (NEGATIVE); URINE LEUKOCYTE ESTERASE Negative (NEGATIVE); URINE NITRATE Negative (NEGATIVE); URINE PROTEIN(semi-quant) 1+ (NEGATIVE); URINE RBC None Seen /hpf; URINE UROBILINOGEN Negative (NEGATIVE)
== END ==
LOC: ZCOL.LAB 16:31
PROVIDERS: Internal Medicine
DX: Z01.89 Encounter for other specified special examinations (principal)

== ENCOUNTER → 2019-03-04 | Emergency (ER) | payer MEDICARE, BC ==
[2006-07-04 08:06] VITALS: BP 131/66
[~2019-03-04] VITALS: Ht 160 cm; Wt 51.4 kg
[2019-03-04 14:36] VITALS: BP 138/77; PULSE 74; TEMP 97.9
== END ==
LOC: COL.ER 11:08
DX: S81.001A Unspecified open wound, right knee, initial encounter (principal); T81.30XA Disruption of wound, unspecified, initial encounter; I25.10 Atherosclerotic heart disease of native coronary artery without angina pectoris; Z95.1 Presence of aortocoronary bypass graft; Z88.2 Allergy status to sulfonamides; Z88.5 Allergy status to narcotic agent; Z87.891 Personal history of nicotine dependence; Z79.82 Long term (current) use of aspirin; W19.XXXA Unspecified fall, initial encounter; Y92.009 Unspecified place in unspecified non-institutional (private) residence as the place of occurrence of the external cause

== ENCOUNTER → 2019-06-17 | Outpatient (CLI) | payer MEDICARE, BC ==
[2019-06-17 17:38] LABS: HEMOGLOBIN 11.1 g/dl (12.5-16.0); MEAN CELL VOLUME 89 fl (80.0-100.0); MEAN CORPUSCULAR HEMOGLOBIN 28 pg (27.0-31.0); MEAN CORPUSCULAR HGB CONC 32 g/dl (33.0-37.0); MEAN PLATELET VOLUME 11.1 fl (7.4-10.4); PLATELET COUNT 182 K/mm3 (130-400); RED BLOOD COUNT 3.92 M/mm3 (4.10-5.30)
[2019-06-17 17:40] LABS: HEMATOCRIT 34.9 % (37.0-47.0)
[2019-06-17 17:45] LABS: ANION GAP 12 mmol/L (7-16); BLOOD UREA NITROGEN 32 mg/dL (7-17); CALCIUM 10.1 mg/dL (8.4-10.2); CARBON DIOXIDE 22 mmol/L (22-30); CHLORIDE 102 mmol/L (98-107); GLUCOSE 104 mg/dL (74-106); POTASSIUM 4.5 mmol/L (3.4-5.0); SODIUM 135 mmol/L (137-145)
[2019-06-17 18:04] LABS: TROPONIN-I < 0.012 ng/mL (0.000-0.035)
[2019-06-17 18:15] LABS: BAND 2 % (0-10); LYMPHOCYTE 1 % (20.0-51.0); NEUTROPHILS 93 % (42.0-75.2); PLATELET ESTIMATE NORMAL (NORMAL)
== END ==
LOC: ZCOL.LAB 17:01
PROVIDERS: Internal Medicine Interventional Cardiology
DX: R07.9 Chest pain, unspecified (principal)

== ENCOUNTER → 2019-06-20 | Outpatient (CLI) | payer MEDICARE, BC | LOC: COL.RAD 13:21 | DX: R79.89 Other specified abnormal findings of blood chemistry (principal); R07.89 Other chest pain; I51.7 Cardiomegaly | CPT/HCPCS: Q9967 ==

== ENCOUNTER 2019-09-17 07:39 | Inpatient (IN) | payer MEDICARE, BC ==
[~2019-09-17] VITALS: Ht 160 cm; Wt 50.5 kg
[2019-09-17] VITALS (10 sets, daily range): BP systolic 148–187; BP diastolic 49–79; PULSE 59–69; TEMP 97.9–98.2
[2019-09-17] MEDS ORDERED: NORVASC 10MG10 MG PO (08:05)
[2019-09-17] MEDS ORDERED: OCUVITE1 TA1 PO (08:05)
[2019-09-17] MEDS ORDERED: NITROSTAT0.4 MG/TAB SL (08:06)
[2019-09-17] MEDS ORDERED: ADVIL200 MG PO (08:07)
[2019-09-17] MEDS ORDERED: NORCO 325 MG-51 TAB PO (08:07)
[2019-09-17] MEDS ORDERED: SENOKOT8.6 MG PO (08:08)
[2019-09-17] MEDS ORDERED: ZOCOR 20MG20 MG PO (08:08)
[2019-09-17 08:47] LABS: BASO % 0.2 % (0.0-2.0); EOS # 0.1 (0.0-0.7); EOS % 0.9 % (0-4.0); GRAN # 5.7 (1.4-6.5); GRAN % 87.8 % (42.2-75.2); HEMATOCRIT 37.1 % (37.0-47.0); HEMOGLOBIN 11.9 g/dl (12.5-16.0); LYMPH # 0.3 (1.2-3.4); LYMPH % 5.1 % (20.0-51.0); MEAN CELL VOLUME 94 fl (80.0-100.0); MEAN CORPUSCULAR HEMOGLOBIN 30 pg (27.0-31.0); MEAN CORPUSCULAR HGB CONC 32 g/dl (33.0-37.0); MEAN PLATELET VOLUME 10.5 fl (7.4-10.4); MONO # 0.4 (0.1-0.6); MONO % 5.7 % (1.7-9.3); PLATELET COUNT 137 K/mm3 (130-400); RED BLOOD COUNT 3.96 M/mm3 (4.10-5.30); REDCELL DISTRIBUTION WIDTH-CV 14.8 % (11.5-14.5)
[2019-09-17 08:48] LABS: ALBUMIN 4.1 gm/dL (3.5-5.0); BILIRUBIN,TOTAL 4.4 mg/dL (0.0-1.0); CALCIUM 9.3 mg/dL (8.4-10.2); CREATININE, serum 1.63 (0.52-1.25); POTASSIUM 4.7 mmol/L (3.4-5.0); TOTAL PROTEIN 7.6 gm/dL (6.4-8.2)
--- NOTE | 2019-09-17 15:33 | NUR ---
Pt currently sitting up in bed. Assisted pt to the bathroom. Daughter is a bedside. No complaints at this time. Call light within reach, bed in lowest postion.
--- NOTE | 2019-09-17 16:00 | NUR ---
Patient to endo for ERCP at this time.
--- NOTE | 2019-09-17 16:00 | NUR ---
Roll On Man met with patient and patient's daughter, Audra (ph#[phone]) to discuss discharge planning. Patient lives in [place] with her Arturo (ph#[phone]) and sees Dr. Du for primary care. Patient obtains medications from [facility] with no difficulties. Patient uses a cane at home and a walker with a seat when out in the community. Patient is independent with ADLS. Patient has a Statutory Declaration located in the EMR. Patient plans to return home with family providing transportation. SW will continue to follow as needed.
--- NOTE | 2019-09-17 17:20 | NUR ---
Patient returns from ERCP. Assessment unchanged.
[2019-09-18] VITALS (7 sets, daily range): BP systolic 149–179; BP diastolic 56–93; PULSE 61–66; TEMP 97.4–98.8
[2019-09-18 00:55] LABS: HEMOGLOBIN 10.8 g/dl (12.5-16.0); MEAN CELL VOLUME 93 fl (80.0-100.0); MEAN CORPUSCULAR HEMOGLOBIN 30 pg (27.0-31.0); MEAN CORPUSCULAR HGB CONC 32 g/dl (33.0-37.0); MEAN PLATELET VOLUME 10.4 fl (7.4-10.4); PLATELET COUNT 143 K/mm3 (130-400); RED BLOOD COUNT 3.57 M/mm3 (4.10-5.30); REDCELL DISTRIBUTION WIDTH-CV 15.2 % (11.5-14.5)
[2019-09-18 00:58] LABS: HEMATOCRIT 33.3 % (37.0-47.0)
[2019-09-18 01:12] LABS: ALBUMIN 3.8 gm/dL (3.5-5.0); CALCIUM 8.5 mg/dL (8.4-10.2); CREATININE, serum 1.4 (0.52-1.25); POTASSIUM 4.5 mmol/L (3.4-5.0); TOTAL PROTEIN 6.9 gm/dL (6.4-8.2)
[2019-09-18 01:47] LABS: BAND 2 % (0-10); LYMPHOCYTE 3 % (20.0-51.0); NEUTROPHILS 89 % (42.0-75.2); PLATELET ESTIMATE NORMAL (NORMAL)
--- NOTE | 2019-09-18 01:50 | NUR ---
Patients BP increased. tyrese notified, prn hydralazine ordered and given. BP remains unchanged. c/o nausea, prn zofran ordered and given. patient then had increased severe pain to her abd, tyrese notified and dilaudid now dose ordered and given, patients pain controlled as of now. c/o increased itchiness, tyrese notified, waiting for follow up. IV fluids started at 125 ml/hr infusing into L AC. L AC IV dressing changed and wrapped with trell wrap. ambulated several times with walker to bathroom and had unmeasured voids. no further needs at this time. will continue to monitor.
[2019-09-18 06:34] LABS: COLLECTION METHOD CLEAN CATCH
[2019-09-18 06:39] LABS: PH 5 (5-8); SQUAMOUS EPITHELIAL 0-2 /hpf; URINE APPEARANCE Clear; URINE BACTERIA None Seen /hpf; URINE BILIRUBIN Negative (NEGATIVE); URINE BLOOD Negative (NEGATIVE); URINE COLOR Yellow; URINE GLUCOSE Negative (NEGATIVE); URINE KETONE Negative (NEGATIVE); URINE LEUKOCYTE ESTERASE Negative (NEGATIVE); URINE NITRATE Negative (NEGATIVE); URINE PROTEIN(semi-quant) 1+ (NEGATIVE); URINE RBC 0-2 /hpf; URINE UROBILINOGEN Negative (NEGATIVE)
[2019-09-18] MEDS ORDERED: PLAVIX 75MG TAB75 MG PO (11:57)
[2019-09-18] MEDS ORDERED: LEVOXYL0.088 MG PO (11:59)
[2019-09-18] MEDS ORDERED: MIRALAX PA17 GM/Dose PO (12:00)
[2019-09-18] MEDS ORDERED: ALDACTONE 25MG25 M1 PO (12:03)
--- NOTE | 2019-09-18 12:15 | NUR ---
Home med list reviewed with patient & her significant other. All changes made accordingly. Spoke with hospitalsist team who also reviewed the meds with me. They adjusted Emar accordingly. They are aware of patient elevated Bp. Also made them aware that her Prn medication ativan & benydryl are taken daily not PRN.
--- NOTE | 2019-09-18 16:39 | NUR ---
Pt had an elevated blood pressure reading at 0835 it was 170/56. The pt was given PRN Hydralazine 10mg, see EMAR due to the elevated blood pressrue. The pt blood pressure was rechecked again at 1330 it was 157/64 and her pulse was at 63. Will follow up on blood pressure readings and patients status.
--- NOTE | 2019-09-18 18:09 | NUR ---
Patient sitting up at edge of bed, rocking back & forth. Bentyl PRN per Gi given, trying to avoid narcotics, given her constipation. Patient itching, eye are red, she is scratching. lotion to skin & benydryl Prn per orders. Patient denies being hungry, hot tea provided. Quentin crowder
--- NOTE | 2019-09-18 18:59 | NUR ---
Patient continues to complain of itching & abdominal pain. Hs ativan given. offered warm pack. patient had no interest. SHe keeps asking for more medication & something to sleep. Wanting sleeping medication. Bedside report to [place].
[2019-09-19] VITALS (14 sets, daily range): BP systolic 149–209; BP diastolic 50–81; PULSE 61–73; TEMP 97.4–98.7
--- NOTE | 2019-09-19 00:28 | NUR ---
Patient doing well tonight. alert and oriented. c/o moderate abd pain and prn motrin given. took scheduled medications without issue. patient has now been resting in bed for several hours without complaints. IVF infusing to L AC without issue.
--- NOTE | 2019-09-19 01:11 | NUR ---
PATIENTS BP 188/60, PRN HYDRALAZINE GIVEN. WILL CONTINUE TO MONITOR.
--- NOTE | 2019-09-19 03:29 | NUR ---
Patient pulled out IV to L AC. 20 G IV started on first attempt to R FA. site wrapped with coban. NS infusing at 125 ml/hr into new site. no further needs at this time. will continue to monitor.
--- NOTE | 2019-09-19 04:04 | NUR ---
patients bp 209/81. tyrese notified, 20 mg now dose of hydralazine ordered and given. now order of ultram 50 mg given for moderate abd pain.
[2019-09-19 08:02] LABS: MEAN CELL VOLUME 95 fl (80.0-100.0); MEAN CORPUSCULAR HEMOGLOBIN 31 pg (27.0-31.0); MEAN CORPUSCULAR HGB CONC 32 g/dl (33.0-37.0); MEAN PLATELET VOLUME 11.2 fl (7.4-10.4); PLATELET COUNT 142 K/mm3 (130-400); RED BLOOD COUNT 3.27 M/mm3 (4.10-5.30); REDCELL DISTRIBUTION WIDTH-CV 16.5 % (11.5-14.5)
[2019-09-19 08:08] LABS: HEMATOCRIT 31.1 % (37.0-47.0)
[2019-09-19 08:12] LABS: ALBUMIN 3.4 gm/dL (3.5-5.0); BILIRUBIN,TOTAL 3.5 mg/dL (0.0-1.0); CALCIUM 8.4 mg/dL (8.4-10.2); CREATININE, serum 1.11 (0.52-1.25); POTASSIUM 4.8 mmol/L (3.4-5.0); TOTAL PROTEIN 6.2 gm/dL (6.4-8.2)
--- NOTE | 2019-09-19 09:41 | NUR ---
ASSESSMENTS COMPLETE. VSS WITH EXCEPTION OF ELEVATED BP @ 180'S/50'S. PRN MEDS GIVEN ORDERED. PT SEEMS ANXIOUS AND DROWSEY FROM MEDICATIONS. FAMILY AT BEDSIDE. SBA X1 TO TRANSFER TO BATHROOM.
--- NOTE | 2019-09-19 11:10 | NUR ---
Initial visit; Patient's family thanked Utility Helicopter Repairer for looking in on Angela who was sleeping at the time. Family thanked Utility Helicopter Repairer for offering God's blessings to patient and family.
[2019-09-19 11:42] LABS: GRAN % 86.3 % (42.2-75.2); LYMPH % 4.9 % (20.0-51.0)
[2019-09-19 11:43] LABS: BASO % 0.1 % (0.0-2.0); GRAN # 7.2 (1.4-6.5); LYMPH # 0.4 (1.2-3.4); MONO # 0.7 (0.1-0.6); MONO % 8.2 % (1.7-9.3)
--- NOTE | 2019-09-19 12:54 | NUR ---
Global President met with patient, patient's Arturo and patient's daughter Audra to review PT recommendation for home health. Arturo and Audra are in agreeance. Patient is trying to rest so was minimally involved in conversation. NELSY presented Medicare.gov list of agencies that serve [place]. Arturo selected [facility]. NELSY contacted Isabell at [facility] and faxed referral. SW to continue to follow.
--- NOTE | 2019-09-19 12:57 | NUR ---
PT HAD BM AND VOIDED RETURNED TO RECLINER.
--- NOTE | 2019-09-19 13:31 | NUR ---
IV APRESSOLINE PRN GIVEN ORDERED.
--- NOTE | 2019-09-19 17:23 | NUR ---
PRN ATIVAN GIVEN FOR ELEVATED PRESSURE.
--- NOTE | 2019-09-19 20:00 | NUR ---
Report received. 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 A&OX3-drowsy. Assessment complete. VS stable-received BP meds at 1700. States she has had several bowel movements-last few liquid-wanting to hold off on miralax but wants to take PO Senokot. Denies pain/nasuea/shortness of breath. States she is just tired. Denies questions or concerns. Call light in reach/bed alarm on. Will monitor.
--- NOTE | 2019-09-19 23:20 | NUR ---
Report received from PCT of elevated BP. Taken manually by this nurse-172/60. Hydralazine given per order.
[2019-09-20] VITALS (7 sets, daily range): BP systolic 142–207; BP diastolic 54–92; PULSE 64–76; TEMP 97.5–98
--- NOTE | 2019-09-20 01:45 | NUR ---
C/O pain to abdomen-right upper quadrant-described as constant ache. Tramadol 50mg given per dr order. Also c/o nausea. Zofran given per dr order.
[2019-09-20 07:29] LABS: BASO % 0.1 % (0.0-2.0); EOS % 0.4 % (0-4.0); GRAN # 6.1 (1.4-6.5); GRAN % 83.7 % (42.2-75.2); HEMOGLOBIN 10.4 g/dl (12.5-16.0); LYMPH # 0.6 (1.2-3.4); LYMPH % 8.2 % (20.0-51.0); MEAN CELL VOLUME 97 fl (80.0-100.0); MEAN CORPUSCULAR HEMOGLOBIN 31 pg (27.0-31.0); MEAN CORPUSCULAR HGB CONC 31 g/dl (33.0-37.0); MEAN PLATELET VOLUME 10.5 fl (7.4-10.4); MONO # 0.5 (0.1-0.6); MONO % 6.9 % (1.7-9.3); PLATELET COUNT 147 K/mm3 (130-400); RED BLOOD COUNT 3.41 M/mm3 (4.10-5.30); REDCELL DISTRIBUTION WIDTH-CV 16.4 % (11.5-14.5)
[2019-09-20 07:39] LABS: ALBUMIN 3.5 gm/dL (3.5-5.0); CALCIUM 8.7 mg/dL (8.4-10.2); CREATININE, serum 0.88 (0.52-1.25); POTASSIUM 4.4 mmol/L (3.4-5.0); TOTAL PROTEIN 6.5 gm/dL (6.4-8.2)
[2019-09-20 07:40] LABS: HEMATOCRIT 33.1 % (37.0-47.0)
[2019-09-20] MEDS ORDERED: BENTYL 10MG10 MG/CAP PO (09:26)
[2019-09-20] MEDS ORDERED: NORCO 325 MG-51 TAB PO (09:28)
[2019-09-20] MEDS ORDERED: METAMUCIL3.4 GM/DOS PO (09:29)
[2019-09-20] MEDS ORDERED: TOPROL XL 25MG25 MG PO (09:33)
--- NOTE | 2019-09-20 09:45 | NUR ---
Sensitizer attended clinical rounds with the team and patient to discharge home today with home health. SW met with patient and who expressed interest in setting up Meals on Wheels. Patient states they have had it in the past. SW provided contact information for the [facility] and advised they would need to call to set up an appointment. SW provided her contact information in case they have any difficulties. NELSY contacted Kizzy at [facility] and faxed discharge orders. No additional needs at this time.
--- NOTE | 2019-09-20 11:50 | NUR ---
Pt blood pressure was elevated with morning vitals. Blood pressure medications were given. I waited to recheck the pts blood pressure. Her blood pressure reading was 170/68 so she was given 10mg of Hydralazine via IV. She was taking a nap when I came in to check her blood pressure. Her is currently at her bedside. Bed is in lowest position and call light within reach
--- NOTE | 2019-09-20 14:31 | NUR ---
Hospitalist notifed & aware of continued elevated Blood pressure. No new orders. Verified patient may discharge.
--- NOTE | 2019-09-20 14:57 | NUR ---
Patient ready for discharge. Patient spouse to take her home. Patient given all instructions. We discussed home meds list, new medications faxed to pharmacy, & changes in medication. Lat dose take reviewed. Patient going to continue to check her Bp at home and report back to PCP. Patient aware of lab orders. follow up with Gi scheduled. Patient diet & activity restrictions discussed. We reviewed safety at home. Int dc. Patient ate a chicken strip.
== END 2019-09-20 15:01 | disposition home health service (06) | DRG 445 ==
LOC: COL.ER 07:39 → JCC 10:29
PROVIDERS: Internal Medicine Gastroenterology; Nurse Practitioner Family; Physician Assistant; ADMIT Student in an Organized Health Care Education/Training Program
PROC: BF101ZZ Fluoroscopy of Bile Ducts using Low Osmolar Contrast (ICD-10-PCS; 2019-09-17)
PROC: 0FC98ZZ Extirpation of Matter from Common Bile Duct, Via Natural or Artificial Opening Endoscopic (ICD-10-PCS; principal; 2019-09-17 16:15)
DX: K80.51 Calculus of bile duct without cholangitis or cholecystitis with obstruction (principal); I48.20 Chronic atrial fibrillation, unspecified; I12.9 Hypertensive chronic kidney disease with stage 1 through stage 4 chronic kidney disease, or unspecified chronic kidney disease; N18.3 Chronic kidney disease, stage 3 (moderate); I70.203 Unspecified atherosclerosis of native arteries of extremities, bilateral legs; Z87.891 Personal history of nicotine dependence; I25.10 Atherosclerotic heart disease of native coronary artery without angina pectoris; Z95.1 Presence of aortocoronary bypass graft; Z79.82 Long term (current) use of aspirin; Z95.0 Presence of cardiac pacemaker; Z66 Do not resuscitate; E03.9 Hypothyroidism, unspecified; D63.1 Anemia in chronic kidney disease; M47.9 Spondylosis, unspecified; Z88.5 Allergy status to narcotic agent; Z88.2 Allergy status to sulfonamides; R33.9 Retention of urine, unspecified; K59.00 Constipation, unspecified; F41.9 Anxiety disorder, unspecified; I65.23 Occlusion and stenosis of bilateral carotid arteries
CPT/HCPCS: OP; 99232-AI; 99233-AI; 99239; C1769; G0378; J0360; J1170; J1200; J1610; J1644; J2405; J2543; J2704; J7030; J8540; Q9967

== ENCOUNTER → 2019-10-22 | Outpatient (CLI) | payer MEDICARE, BC ==
[~2019-10-22] MED LIST changes: +ADVIL200 MG PO; +BENTYL 10MG10 MG/CAP PO; +LEVOXYL0.088 MG PO; +METAMUCIL3.4 GM/DOS PO; +OCUVITE1 TA1 PO; +SENOKOT8.6 MG PO
[2019-10-22 16:55] LABS: BASO % 0.2 % (0.0-2.0); EOS # 0.1 (0.0-0.7); EOS % 1.5 % (0-4.0); GRAN # 4.3 (1.4-6.5); GRAN % 83.3 % (42.2-75.2); LYMPH # 0.4 (1.2-3.4); LYMPH % 7.7 % (20.0-51.0); MEAN CELL VOLUME 99 fl (80.0-100.0); MEAN CORPUSCULAR HGB CONC 30 g/dl (33.0-37.0); MONO # 0.4 (0.1-0.6); MONO % 6.9 % (1.7-9.3); PLATELET COUNT 154 K/mm3 (130-400); RED BLOOD COUNT 3.36 M/mm3 (4.10-5.30); REDCELL DISTRIBUTION WIDTH-CV 14.7 % (11.5-14.5)
[2019-10-22 17:08] LABS: HEMATOCRIT 33.2 % (37.0-47.0); HEMOGLOBIN 9.9 g/dl (12.5-16.0); MEAN CORPUSCULAR HEMOGLOBIN 29 pg (27.0-31.0)
[2019-10-22 17:14] LABS: ALBUMIN 3.6 gm/dL (3.5-5.0); BILIRUBIN,TOTAL 0.4 mg/dL (0.0-1.0); CALCIUM 8.8 mg/dL (8.4-10.2); CREATININE, serum 1.45 (0.52-1.25); POTASSIUM 5.4 mmol/L (3.4-5.0); TOTAL PROTEIN 6.2 gm/dL (6.4-8.2)
== END ==
LOC: ZLAB.WCH 16:47
PROVIDERS: Internal Medicine
DX: I10 Essential (primary) hypertension (principal); R74.8 Abnormal levels of other serum enzymes

== ENCOUNTER → 2019-11-01 | Outpatient (CLI) | payer MEDICARE, BC ==
[2019-11-01 14:09] LABS: BASO % 0.2 % (0.0-2.0); EOS # 0.1 (0.0-0.7); EOS % 1.6 % (0-4.0); GRAN # 3.7 (1.4-6.5); GRAN % 83.4 % (42.2-75.2); LYMPH # 0.4 (1.2-3.4); LYMPH % 8.2 % (20.0-51.0); MEAN CELL VOLUME 93 fl (80.0-100.0); MEAN CORPUSCULAR HGB CONC 31 g/dl (33.0-37.0); MEAN PLATELET VOLUME 9.5 fl (7.4-10.4); MONO # 0.3 (0.1-0.6); MONO % 6.2 % (1.7-9.3); PLATELET COUNT 252 K/mm3 (130-400); RED BLOOD COUNT 3.13 M/mm3 (4.10-5.30); REDCELL DISTRIBUTION WIDTH-CV 14.1 % (11.5-14.5)
[2019-11-01 14:14] LABS: HEMATOCRIT 29.2 % (37.0-47.0); HEMOGLOBIN 9.1 g/dl (12.5-16.0); MEAN CORPUSCULAR HEMOGLOBIN 29 pg (27.0-31.0)
[2019-11-01 14:25] LABS: ALBUMIN 3.2 gm/dL (3.5-5.0); BILIRUBIN,TOTAL 0.3 mg/dL (0.0-1.0); CALCIUM 9.2 mg/dL (8.4-10.2); CREATININE, serum 1.32 (0.52-1.25); POTASSIUM 5.6 mmol/L (3.4-5.0)
== END ==
LOC: ZCOL.LAB 13:55
PROVIDERS: Internal Medicine
DX: I10 Essential (primary) hypertension (principal); R74.8 Abnormal levels of other serum enzymes

== ENCOUNTER → 2019-11-15 | Outpatient (CLI) | payer MEDICARE, BC ==
[2019-11-15 14:21] LABS: COLLECTION METHOD CLEAN CATCH
[2019-11-15 14:44] LABS: PH 6 (5-8); SQUAMOUS EPITHELIAL 0-2 /hpf; URINE APPEARANCE Hazy; URINE BACTERIA None Seen /hpf; URINE BILIRUBIN Negative (NEGATIVE); URINE BLOOD Negative (NEGATIVE); URINE COLOR Amber; URINE GLUCOSE Negative (NEGATIVE); URINE KETONE Negative (NEGATIVE); URINE LEUKOCYTE ESTERASE Trace (NEGATIVE); URINE NITRATE Positive (NEGATIVE); URINE PROTEIN(semi-quant) 1+ (NEGATIVE); URINE UROBILINOGEN >=4.0 mg/dL (NEGATIVE); URINE WBC >50 /hpf
== END ==
LOC: ZCOL.LAB 13:29
PROVIDERS: Internal Medicine
DX: N39.0 Urinary tract infection, site not specified (principal)

== ENCOUNTER → 2019-12-10 | Outpatient (CLI) | payer MEDICARE, BC ==
[2019-12-10 15:46] LABS: COLLECTION METHOD CLEAN CATCH
[2019-12-10 15:54] LABS: MUCOUS Present /lpf; PH 6 (5-8); SQUAMOUS EPITHELIAL 0-2 /hpf; URINE APPEARANCE Clear; URINE BACTERIA None Seen /hpf; URINE BILIRUBIN Negative (NEGATIVE); URINE BLOOD Negative (NEGATIVE); URINE COLOR Amber; URINE GLUCOSE Negative (NEGATIVE); URINE KETONE Negative (NEGATIVE); URINE LEUKOCYTE ESTERASE Negative (NEGATIVE); URINE NITRATE Positive (NEGATIVE); URINE PROTEIN(semi-quant) 1+ (NEGATIVE); URINE RBC 0-2 /hpf; URINE UROBILINOGEN >=4.0 mg/dL (NEGATIVE)
== END ==
LOC: ZCOL.LAB 15:13
PROVIDERS: Internal Medicine
DX: N39.0 Urinary tract infection, site not specified (principal)

== ENCOUNTER 2019-12-14 04:34 | Emergency (ER) | payer MEDICARE, BC ==
[2006-07-04 08:06] VITALS: BP 131/66
[~2019-12-14] VITALS: Ht 160 cm; Wt 49.5 kg
[2019-12-14 04:40] VITALS: TEMP 97.9
[2019-12-14] MEDS ORDERED: AMOXICILLIN 8751 TAB PO (04:43)
[2019-12-14] MEDS ORDERED: TOPROL XL100 MG PO (04:50)
[2019-12-14 05:24] LABS: BASO % 0.4 % (0.0-2.0); EOS # 0.1 (0.0-0.7); EOS % 2.6 % (0-4.0); GRAN % 75.3 % (42.2-75.2); HEMOGLOBIN 10.3 g/dl (12.5-16.0); LYMPH # 0.7 (1.2-3.4); LYMPH % 12.7 % (20.0-51.0); MEAN CELL VOLUME 85 fl (80.0-100.0); MEAN CORPUSCULAR HEMOGLOBIN 26 pg (27.0-31.0); MEAN CORPUSCULAR HGB CONC 31 g/dl (33.0-37.0); MEAN PLATELET VOLUME 9.7 fl (7.4-10.4); MONO # 0.5 (0.1-0.6); MONO % 8.6 % (1.7-9.3); PLATELET COUNT 141 K/mm3 (130-400); RED BLOOD COUNT 3.91 M/mm3 (4.10-5.30); REDCELL DISTRIBUTION WIDTH-CV 14.7 % (11.5-14.5)
[2019-12-14 05:28] LABS: HEMATOCRIT 33.1 % (37.0-47.0)
[2019-12-14 05:32] LABS: ALANINE AMINOTRANSFERASE 13 U/L (4-34); ALBUMIN 4.4 gm/dL (3.5-5.0); ALKALINE PHOSPHATASE 99 U/L (50-136); ANION GAP 8 mmol/L (7-16); AST,SGOT 22 U/L (15-37); BILIRUBIN,TOTAL 0.6 mg/dL (0.0-1.0); BLOOD UREA NITROGEN 19 mg/dL (7-17); CALCIUM 9.5 mg/dL (8.4-10.2); CARBON DIOXIDE 23 mmol/L (22-30); CHLORIDE 98 mmol/L (98-107); CREATININE, serum 1.26 (0.52-1.25); GLUCOSE 101 mg/dL (74-106); POTASSIUM 4.3 mmol/L (3.4-5.0); SODIUM 130 mmol/L (137-145); TOTAL PROTEIN 7.1 gm/dL (6.4-8.2)
[2019-12-14 05:44] LABS: TROPONIN-I < 0.012 ng/mL (0.000-0.035)
[2019-12-14 06:05] LABS: COLLECTION METHOD CLEAN CATCH
[2019-12-14 06:20] LABS: PH 7 (5-8); SQUAMOUS EPITHELIAL None Seen /hpf; URINE APPEARANCE Clear; URINE BACTERIA None Seen /hpf; URINE BILIRUBIN Negative (NEGATIVE); URINE BLOOD Negative (NEGATIVE); URINE COLOR Yellow; URINE GLUCOSE Negative (NEGATIVE); URINE KETONE Negative (NEGATIVE); URINE LEUKOCYTE ESTERASE Negative (NEGATIVE); URINE NITRATE Negative (NEGATIVE); URINE PROTEIN(semi-quant) 1+ (NEGATIVE); URINE RBC 0-2 /hpf; URINE UROBILINOGEN Negative (NEGATIVE)
[2019-12-14 08:32] VITALS: BP 183/85; PULSE 59
== END 2019-12-14 09:00 | disposition home or self-care (01) ==
LOC: COL.ER 04:34
PROVIDERS: Emergency Medicine
DX: S12.300A Unspecified displaced fracture of fourth cervical vertebra, initial encounter for closed fracture (principal); I12.9 Hypertensive chronic kidney disease with stage 1 through stage 4 chronic kidney disease, or unspecified chronic kidney disease; N18.9 Chronic kidney disease, unspecified; R40.2412 Glasgow coma scale score 13-15, at arrival to emergency department; E78.5 Hyperlipidemia, unspecified; I48.91 Unspecified atrial fibrillation; E87.1 Hypo-osmolality and hyponatremia; Z79.82 Long term (current) use of aspirin; Z79.02 Long term (current) use of antithrombotics/antiplatelets; W19.XXXA Unspecified fall, initial encounter; W22.8XXA Striking against or struck by other objects, initial encounter; Y92.009 Unspecified place in unspecified non-institutional (private) residence as the place of occurrence of the external cause
CPT/HCPCS: J2405; J3010; J7030

== ENCOUNTER 2019-12-18 20:01 | Emergency (ER) | payer MEDICARE, BC ==
[2006-07-04 08:06] VITALS: BP 131/66
[~2019-12-18] VITALS: Ht 160 cm; Wt 49.1 kg
[~2019-12-18 20:01] MED LIST changes: +AMOXICILLIN 8751 TAB PO; +TOPROL XL100 MG PO
[2019-12-18 20:05] VITALS: TEMP 97.4
[2019-12-18 21:59] LABS: BASO % 0.3 % (0.0-2.0); EOS % 0.2 % (0-4.0); GRAN # 9.4 (1.4-6.5); GRAN % 88.7 % (42.2-75.2); HEMATOCRIT 36.1 % (37.0-47.0); HEMOGLOBIN 11.2 g/dl (12.5-16.0); LYMPH # 0.7 (1.2-3.4); LYMPH % 6.8 % (20.0-51.0); MEAN CELL VOLUME 85 fl (80.0-100.0); MEAN CORPUSCULAR HEMOGLOBIN 26 pg (27.0-31.0); MEAN CORPUSCULAR HGB CONC 31 g/dl (33.0-37.0); MEAN PLATELET VOLUME 9.3 fl (7.4-10.4); MONO # 0.4 (0.1-0.6); MONO % 3.7 % (1.7-9.3); PLATELET COUNT 173 K/mm3 (130-400); RED BLOOD COUNT 4.27 M/mm3 (4.10-5.30); REDCELL DISTRIBUTION WIDTH-CV 15.6 % (11.5-14.5)
[2019-12-18 22:12] LABS: ALANINE AMINOTRANSFERASE 22 U/L (4-34); ALBUMIN 4.5 gm/dL (3.5-5.0); ALKALINE PHOSPHATASE 138 U/L (50-136); ANION GAP 9 mmol/L (7-16); AST,SGOT 38 U/L (15-37); BILIRUBIN,TOTAL 0.7 mg/dL (0.0-1.0); BLOOD UREA NITROGEN 40 mg/dL (7-17); C-REACTIVE PROTEIN < 0.5 mg/dL (0.0-0.9); CALCIUM 10.4 mg/dL (8.4-10.2); CARBON DIOXIDE 27 mmol/L (22-30); CHLORIDE 97 mmol/L (98-107); CREATININE, serum 1.23 (0.52-1.25); GLUCOSE 171 mg/dL (74-106); POTASSIUM 4.4 mmol/L (3.4-5.0); SODIUM 134 mmol/L (137-145); TOTAL PROTEIN 7.5 gm/dL (6.4-8.2)
[2019-12-18 23:09] LABS: COLLECTION METHOD CLEAN CATCH
[2019-12-18 23:32] LABS: PH 8 (5-8); SQUAMOUS EPITHELIAL None Seen /hpf; URINE APPEARANCE Clear; URINE BACTERIA None Seen /hpf; URINE BILIRUBIN Negative (NEGATIVE); URINE BLOOD 2+ (NEGATIVE); URINE COLOR Straw; URINE GLUCOSE Negative (NEGATIVE); URINE KETONE Negative (NEGATIVE); URINE LEUKOCYTE ESTERASE Negative (NEGATIVE); URINE NITRATE Negative (NEGATIVE); URINE PROTEIN(semi-quant) Negative (NEGATIVE); URINE RBC >50 /hpf; URINE UROBILINOGEN Negative (NEGATIVE)
[2019-12-18] MEDS ORDERED: KLONOPIN 0.5MG0.5 MG PO (23:43)
[2019-12-18] MEDS ORDERED: ADVIL200 MG PO (23:44)
[2019-12-18] MEDS ORDERED: METAMUCIL3.4 GM/DOS PO (23:45)
[2019-12-18] MEDS ORDERED: TOPROL XL 50MG50 MG PO (23:46)
[2019-12-18] MEDS ORDERED: TOPROL XL 25MG25 MG PO (23:46)
[2019-12-18] MEDS ORDERED: NORVASC 10MG10 MG PO (23:47)
[2019-12-18] MEDS ORDERED: PRILOSEC 20MG20 MG PO (23:48)
[2019-12-18] MEDS ORDERED: ALDACTONE 25MG25 M1 PO (23:49)
[2019-12-19 00:49] VITALS: BP 159/64; PULSE 76
== END 2019-12-19 00:26 | disposition short-term general hospital (02) ==
LOC: COL.ER 20:01
PROVIDERS: Emergency Medicine; Nurse Practitioner
DX: K56.609 Unspecified intestinal obstruction, unspecified as to partial versus complete obstruction (principal); F41.9 Anxiety disorder, unspecified; Z79.82 Long term (current) use of aspirin; Z90.710 Acquired absence of both cervix and uterus; Z90.49 Acquired absence of other specified parts of digestive tract
CPT/HCPCS: J2270; J2405; J3010; J7040; Q9967

== ENCOUNTER → 2020-01-03 | Outpatient (CLI) | payer MEDICARE, BC ==
[~2020-01-03] MED LIST changes: +KLONOPIN 0.5MG0.5 MG PO
[2020-01-03 16:10] LABS: COLLECTION METHOD CLEAN CATCH
[2020-01-03 16:17] LABS: BUDDING YEAST Present /hpf; MUCOUS Present /lpf; PH 6 (5-8); SQUAMOUS EPITHELIAL 0-2 /hpf; URINE APPEARANCE Clear; URINE BACTERIA None Seen /hpf; URINE BILIRUBIN Negative (NEGATIVE); URINE BLOOD Negative (NEGATIVE); URINE COLOR Yellow; URINE GLUCOSE Negative (NEGATIVE); URINE KETONE Negative (NEGATIVE); URINE LEUKOCYTE ESTERASE Negative (NEGATIVE); URINE NITRATE Negative (NEGATIVE); URINE PROTEIN(semi-quant) 1+ (NEGATIVE); URINE RBC 0-2 /hpf; URINE UROBILINOGEN Negative (NEGATIVE)
== END ==
LOC: ZCOL.LAB 15:23
PROVIDERS: Internal Medicine
DX: R30.9 Painful micturition, unspecified (principal)

== ENCOUNTER → 2020-05-06 | Outpatient (CLI) | payer MEDICARE, BC | LOC: COL.RAD 11:28 | DX: S12.300A Unspecified displaced fracture of fourth cervical vertebra, initial encounter for closed fracture (principal); M43.12 Spondylolisthesis, cervical region; Z98.1 Arthrodesis status ==

== ENCOUNTER → 2020-08-31 | Outpatient (CLI) | payer MEDICARE, BC | LOC: COL.RAD 15:14 | DX: M47.812 Spondylosis without myelopathy or radiculopathy, cervical region (principal); Z98.1 Arthrodesis status ==

== ENCOUNTER 2020-11-13 09:50 | Day surgery (SDC) | payer MEDICARE, BC ==
[2006-07-04 08:06] VITALS: BP 131/66
[~2020-11-13] VITALS: Ht 160 cm; Wt 51.7 kg
[2020-11-13] VITALS (7 sets, daily range): BP systolic 154–192; BP diastolic 74–99; PULSE 60–70; TEMP 97.8–99
[2020-11-13] MEDS ORDERED: BUSPAR5 MG PO (10:53)
[2020-11-13] MEDS ORDERED: MYLANTA 150 ML150 M1 PO (10:54)
[2020-11-13] MEDS ORDERED: COREG 25MG25 MG/TAB PO (10:55)
[2020-11-13] MEDS ORDERED: GENTLE LAXATIVE5 MG PO (10:55)
[2020-11-13] MEDS ORDERED: LIPITOR 10MG10 MG PO (10:56)
[2020-11-13] MEDS ORDERED: PROBIOTIC BLEN1 EACH PO (10:57)
[2020-11-13] MEDS ORDERED: TUMS500 MG (10:57)
--- NOTE | 2020-11-13 12:40 | NUR ---
Pt to GI bay 8 via cart from ENDO. Pt transfers to recliner with stand by assistance. Pt c/o lower abdominal pain and back pain. Daughter reports this is her baseline and part of the reason for the colonoscopy today. Coffee given per pt request.
--- NOTE | 2020-11-13 12:55 | NUR ---
Pt on bed blas and passed small amount of liquid stool. Leticia care provided. New gown placed on pt. Pillow placed behind pt's back for comfort. New warm blankets provided.
--- NOTE | 2020-11-13 13:10 | NUR ---
Efren SENIOR ENGINEERING TEAM LEADER notified of continued HTN. Orders for hydralazine given. Call light within reach.
--- NOTE | 2020-11-13 13:25 | NUR ---
Pt continues to have lower abdominal pain and back pain. Warm blanket placed on abdomen. into speak with pt and daughter. Pacemaker/defibulator medtronic interrogation completed. [employer]tr[employer] rep to call the results when available. Will continue to monitor.
--- NOTE | 2020-11-13 13:55 | NUR ---
Pt continues to rest. Denies needs. Pt wanting to go home. notified and is ok with pt going home. Spoke with Danny Adair CRNA due to HTN and he is ok with sending pt home as well.
--- NOTE | 2020-11-13 14:10 | NUR ---
Discharge instructions reviewed. Pt voices understanding. IV site discontinued with all parts intact. Pt up to dress with assistance from her daughter.
--- NOTE | 2020-11-13 14:30 | NUR ---
Pt escorted to private car via wheel chair. Pt accompanied home by her daughter.
== END 2020-11-13 14:30 | disposition home or self-care (01) ==
LOC: SDCO 09:50
DX: D12.2 Benign neoplasm of ascending colon (principal); K63.5 Polyp of colon; K29.30 Chronic superficial gastritis without bleeding; K57.30 Diverticulosis of large intestine without perforation or abscess without bleeding; E03.9 Hypothyroidism, unspecified; K21.9 Gastro-esophageal reflux disease without esophagitis; I12.9 Hypertensive chronic kidney disease with stage 1 through stage 4 chronic kidney disease, or unspecified chronic kidney disease; N18.30 Chronic kidney disease, stage 3 unspecified; Z20.822 Contact with and (suspected) exposure to COVID-19; F32.9 Major depressive disorder, single episode, unspecified; K59.00 Constipation, unspecified; M81.0 Age-related osteoporosis without current pathological fracture; E78.2 Mixed hyperlipidemia; I73.9 Peripheral vascular disease, unspecified; I25.2 Old myocardial infarction; I25.10 Atherosclerotic heart disease of native coronary artery without angina pectoris; K25.9 Gastric ulcer, unspecified as acute or chronic, without hemorrhage or perforation; I48.0 Paroxysmal atrial fibrillation; H35.30 Unspecified macular degeneration; F41.9 Anxiety disorder, unspecified; D64.9 Anemia, unspecified; Z80.0 Family history of malignant neoplasm of digestive organs; Z79.82 Long term (current) use of aspirin; Z79.899 Other long term (current) drug therapy; Z79.890 Hormone replacement therapy; Z91.040 Latex allergy status; Z95.1 Presence of aortocoronary bypass graft; Z87.891 Personal history of nicotine dependence; Z95.820 Peripheral vascular angioplasty status with implants and grafts; Z95.810 Presence of automatic (implantable) cardiac defibrillator; Z80.8 Family history of malignant neoplasm of other organs or systems
CPT/HCPCS: J0360; J2704; J7120

== ENCOUNTER 2020-12-22 14:39 | Outpatient (CLI) | payer MEDICARE, BC ==
[2006-07-04 08:06] VITALS: BP 131/66
[~2020-12-22 14:39] MED LIST changes: +BUSPAR5 MG PO; +GENTLE LAXATIVE5 MG PO; +LIPITOR 10MG10 MG PO; +MYLANTA 150 ML150 M1 PO; +PROBIOTIC BLEN1 EACH PO; +TUMS500 MG
[2020-12-22 15:12] VITALS: BP 132/67; PULSE 63; TEMP 98.4
== END 2020-12-22 17:28 ==
LOC: EUO 14:39
DX: E61.1 Iron deficiency (principal)
CPT/HCPCS: J1756; J7050

== ENCOUNTER → 2021-02-02 | Outpatient (CLI) | payer MEDICARE, BC ==
[~2021-02-02] MED LIST changes: +APRESOLINE 10MG10 MG PO; +CELEBREX 1100 MG/CAP PO; +COREG12.5 MG PO; +MAG-OX 400400 MG/TAB PO; +PRINIVIL20 MG PO
== END ==
LOC: COL.RAD 14:53
DX: Z98.1 Arthrodesis status (principal)

== ENCOUNTER 2021-03-27 14:41 | Observation (INO) | payer MEDICARE, BC ==
[~2021-03-27] VITALS: Ht 160 cm; Wt 52.3 kg
[~2021-03-27 14:41] MED LIST changes: -APRESOLINE 10MG10 MG PO; -CELEBREX 1100 MG/CAP PO; -COREG12.5 MG PO; -MAG-OX 400400 MG/TAB PO; -PRINIVIL20 MG PO
[2021-03-27 15:28] LABS: BASO % 0.3 % (0.0-2.0); EOS # 0.1 (0.0-0.7); GRAN # 2.3 (1.4-6.5); GRAN % 64.2 % (42.2-75.2); HEMATOCRIT 32.3 % (37.0-47.0); HEMOGLOBIN 10.5 g/dl (12.5-16.0); LYMPH # 0.8 (1.2-3.4); LYMPH % 20.9 % (20.0-51.0); MEAN CELL VOLUME 87 fl (80.0-100.0); MEAN CORPUSCULAR HEMOGLOBIN 28 pg (27.0-31.0); MEAN CORPUSCULAR HGB CONC 33 g/dl (33.0-37.0); MONO # 0.4 (0.1-0.6); MONO % 12.3 % (1.7-9.3); PLATELET COUNT 126 K/mm3 (130-400); REDCELL DISTRIBUTION WIDTH-CV 15.4 % (11.5-14.5)
[2021-03-27 15:41] LABS: ALANINE AMINOTRANSFERASE 14 U/L (4-34); ALBUMIN 4.1 gm/dL (3.5-5.0); ALKALINE PHOSPHATASE 92 U/L (50-136); ANION GAP 8 mmol/L (7-16); AST,SGOT 31 U/L (15-37); BILIRUBIN,TOTAL 0.2 mg/dL (0.0-1.0); BLOOD UREA NITROGEN 37 mg/dL (7-17); CALCIUM 9.1 mg/dL (8.4-10.2); CARBON DIOXIDE 25 mmol/L (22-30); CHLORIDE 98 mmol/L (98-107); CREATININE, serum 1.32 (0.52-1.25); GLUCOSE 115 mg/dL (74-106); POTASSIUM 4.7 mmol/L (3.4-5.0); SODIUM 131 mmol/L (137-145); TOTAL PROTEIN 7.3 gm/dL (6.4-8.2)
[2021-03-27 16:02] LABS: TROPONIN-I < 0.012 ng/mL (0.000-0.035)
[2021-03-27 19:16] LABS: PRE ALBUMIN 26.6 mg/dL (17.6-36.0)
[2021-03-27 19:51] LABS: TSH w REFLEX 0.323 uIU/mL (0.350-4.940)
[2021-03-27 20:00] VITALS: BP 187/80; PULSE 68; TEMP 97.7
[2021-03-27] MEDS ORDERED: CELEBREX 1100 MG/CAP PO (21:42)
[2021-03-27] MEDS ORDERED: MAG-OX 400400 MG/TAB PO (21:45)
[2021-03-27 22:40] VITALS: BP 147/77
[2021-03-28 00:27] VITALS: BP 135/67; PULSE 61; TEMP 98.4
--- NOTE | 2021-03-28 00:30 | NUR ---
Called with c/o abdominal pain. Rating pain 6/10 on pain scale-described as cramping. States she has had abdominal cramping for years and "even her belly doctor cant figure out why." Requesting [place]. Currently not ordered-did agree to try some tylenol and a heating pad. Will reassess pain level in one hour.
--- NOTE | 2021-03-28 01:30 | NUR ---
Resting eyes closed. No s/s of pain/discomfort noted.
--- NOTE | 2021-03-28 03:00 | NUR ---
Called with c/o pain to back/neck. Rating pain 8/10 on pain scale-described as constant throbbing. Hospitalist-SANDRA Perez notified and new orders received. Cozad one tab given per dr order. Will continue to monitor.
[2021-03-28 03:56] VITALS: BP 124/65; PULSE 60; TEMP 97.4
--- NOTE | 2021-03-28 05:27 | NUR ---
Rested well after receiving norco. Also provided with heating pad-used PRN. Currently denies pain/nausea/shortness of breath. VS remained stable-BP normalized. Voiding without difficulty. Denies current needs. Call light in reach. Will monitor.
[2021-03-28 07:37] LABS: CHOLESTEROL RISK RATIO 3.4
[2021-03-28 07:43] VITALS: BP 158/69; PULSE 62; TEMP 97.8
--- NOTE | 2021-03-28 08:00 | NUR ---
Patient called nursing staff for assistance to the bathroom. Nurse assisted the patient with a standby assist with walker to the bathoom. Nurse stayed outside the patients room, patient did get unsteady while on the toilet. Nurse informed the patient that she will be a high fall risk and that the bed alarm will be turned on. Patient verbalized an understanding. Patient reporting nausea after receiving a pain pill earlier in the morning. Nausea medication given. No further needs expressed from the patient. Call light within reach. Bed alarm on
[2021-03-28 12:08] VITALS: BP 178/63; PULSE 59; TEMP 98.2
[2021-03-28] MEDS ORDERED: COREG12.5 MG PO (12:24)
[2021-03-28] MEDS ORDERED: PRINIVIL20 MG PO (12:27)
[2021-03-28] MEDS ORDERED: APRESOLINE 10MG10 MG PO (12:29)
--- NOTE | 2021-03-28 13:59 | NUR ---
SW met with patient to complete intake. Patient states that she lives alone in [facility]. Patient states that her daughter Yaneli [phone] lives in [facility] and assists with providing assistance when needed. SW informed that patient has previously utilized [facility] for HH services and would like to continue using services. SW obtained orders and sent information to [facility]note 2] due to order from physician. Patient states that uses a walker and is independent with ADL's, PCP is Dr. Ortiz, and pharmacy is [facility]. Patient provides that she plans to go back to her home up on [place] and has no concern with doing so. SW will continue to follow. DC Plan: home with HH services from [facility]
--- NOTE | 2021-03-28 14:04 | NUR ---
Discharge paperwork reviewed with the patient. Patient and daughter verbalized an understanding to follow doctors orders. IV removed, tip intact, gauze and coban applied. No further needs expressed. Patient transfered by wheelchair to ED entrance.
--- NOTE | 2021-03-29 12:37 | NUR ---
pressed or blown glass worker faxed K[facility] with [facility] home health orders.
== END 2021-03-28 14:04 | disposition home health service (06) ==
LOC: COL.ER 14:41 → MEDICAL 17:32
PROVIDERS: Physician Assistant; ADMIT Internal Medicine
DX: I16.0 Hypertensive urgency (principal); I25.118 Atherosclerotic heart disease of native coronary artery with other forms of angina pectoris; I13.10 Hypertensive heart and chronic kidney disease without heart failure, with stage 1 through stage 4 chronic kidney disease, or unspecified chronic kidney disease; D63.1 Anemia in chronic kidney disease; E78.5 Hyperlipidemia, unspecified; R73.03 Prediabetes; E03.2 Hypothyroidism due to medicaments and other exogenous substances; M19.90 Unspecified osteoarthritis, unspecified site; G89.29 Other chronic pain; N18.30 Chronic kidney disease, stage 3 unspecified; Z90.710 Acquired absence of both cervix and uterus; Z95.0 Presence of cardiac pacemaker; Z79.82 Long term (current) use of aspirin; Z79.899 Other long term (current) drug therapy; Z79.890 Hormone replacement therapy; Z79.891 Long term (current) use of opiate analgesic; Z87.891 Personal history of nicotine dependence
CPT/HCPCS: G0378; J1650; J2405

== ENCOUNTER → 2021-04-07 | Outpatient (CLI) | payer MEDICARE, BC ==
[~2021-04-07] MED LIST changes: +APRESOLINE 10MG10 MG PO; +CELEBREX 1100 MG/CAP PO; +COREG12.5 MG PO; +MAG-OX 400400 MG/TAB PO; +PRINIVIL20 MG PO
== END ==
LOC: COL.CARD 11:31
DX: I10 Essential (primary) hypertension (principal); R07.89 Other chest pain

== ENCOUNTER → 2021-07-07 | Emergency (ER) | payer MEDICARE, BC ==
[~2021-07-07] VITALS: Ht 160 cm; Wt 55.0 kg
[2021-07-07 20:39] VITALS: BP 172/78; PULSE 60
[2021-07-07 20:40] LABS: BASO % 0.2 % (0.0-2.0); EOS # 0.1 K/mm3 (0.0-0.7); EOS % 2.1 % (0-4.0); GRAN # 3.7 K/mm3 (1.4-6.5); GRAN % 69.9 % (42.2-75.2); HEMOGLOBIN 10.2 g/dl (12.5-16.0); LYMPH % 19.4 % (20.0-51.0); MEAN CELL VOLUME 89 fl (80.0-100.0); MEAN CORPUSCULAR HEMOGLOBIN 29 pg (27.0-31.0); MEAN CORPUSCULAR HGB CONC 33 g/dl (33.0-37.0); MEAN PLATELET VOLUME 9.9 fl (7.4-10.4); MONO # 0.4 K/mm3 (0.1-0.6); MONO % 8.2 % (1.7-9.3); PLATELET COUNT 142 K/mm3 (130-400); RED BLOOD COUNT 3.48 M/mm3 (4.10-5.30); REDCELL DISTRIBUTION WIDTH-CV 13.6 % (11.5-14.5)
== END ==
LOC: COL.ER 18:04
PROVIDERS: Physician Assistant
DX: I12.9 Hypertensive chronic kidney disease with stage 1 through stage 4 chronic kidney disease, or unspecified chronic kidney disease (principal); N18.30 Chronic kidney disease, stage 3 unspecified; I25.10 Atherosclerotic heart disease of native coronary artery without angina pectoris; Z98.890 Other specified postprocedural states; Z79.82 Long term (current) use of aspirin; Z79.899 Other long term (current) drug therapy

== ENCOUNTER 2021-08-17 17:16 | Emergency (ER) | payer MEDICARE, BC ==
[~2021-08-17] VITALS: Ht 160 cm; Wt 55.5 kg
[2021-08-17 17:38] VITALS: TEMP 98.1
[2021-08-17 18:31] LABS: BASO % 0.5 % (0.0-2.0); EOS # 0.1 K/mm3 (0.0-0.7); EOS % 1.9 % (0.0-4.0); GRAN # 2.9 K/mm3 (1.4-6.5); LYMPH # 0.7 K/mm3 (1.2-3.4); LYMPH % 16.2 % (20.0-51.0); MEAN CELL VOLUME 89 fl (80.0-100.0); MEAN CORPUSCULAR HGB CONC 32 g/dl (33.0-37.0); MEAN PLATELET VOLUME 10.2 fl (7.4-10.4); MONO # 0.4 K/mm3 (0.1-0.6); MONO % 10.2 % (1.7-9.3); PLATELET COUNT 133 K/mm3 (130-400); RED BLOOD COUNT 3.37 M/mm3 (4.10-5.30); REDCELL DISTRIBUTION WIDTH-CV 13.4 % (11.5-14.5)
[2021-08-17 18:32] LABS: HEMATOCRIT 30.1 % (37.0-47.0); HEMOGLOBIN 9.5 g/dl (12.5-16.0); MEAN CORPUSCULAR HEMOGLOBIN 28 pg (27-31)
[2021-08-17 18:33] LABS: PROTHROMBIN TIME 11.3 SECONDS (9.7-12.8)
[2021-08-17 18:43] LABS: ALBUMIN 3.7 gm/dL (3.4-4.8); BILIRUBIN,TOTAL 0.5 mg/dL (0.2-1.2); CALCIUM 8.6 mg/dL (8.4-10.2); CREATININE, serum 1.58 mg/dL (0.57-1.11); TOTAL PROTEIN 6.4 gm/dL (6.2-8.1)
[2021-08-17 18:49] LABS: TROPONIN-I 0.013 ng/mL (0.00-0.033)
[2021-08-17] MEDS ORDERED: FLEXERIL 1010 MG/TAB PO (21:44)
[2021-08-17 22:17] VITALS: BP 98/72; PULSE 78
== END 2021-08-17 22:17 | disposition home or self-care (01) ==
LOC: COL.ER 17:16
PROVIDERS: Emergency Medicine
DX: M54.6 Pain in thoracic spine (principal); I12.9 Hypertensive chronic kidney disease with stage 1 through stage 4 chronic kidney disease, or unspecified chronic kidney disease; N18.30 Chronic kidney disease, stage 3 unspecified; I25.10 Atherosclerotic heart disease of native coronary artery without angina pectoris; E03.9 Hypothyroidism, unspecified; Z20.822 Contact with and (suspected) exposure to COVID-19; Z79.82 Long term (current) use of aspirin; Z79.890 Hormone replacement therapy; Z79.899 Other long term (current) drug therapy
CPT/HCPCS: J2060; J2270; J7030; Q9967

== ENCOUNTER 2021-09-10 17:21 | Emergency (ER) | payer MEDICARE, BC ==
[~2021-09-10] VITALS: Ht 167.6 cm; Wt 55.0 kg
[~2021-09-10 17:21] MED LIST changes: +FLEXERIL 1010 MG/TAB PO
[2021-09-10 17:57] VITALS: TEMP 97.7
[2021-09-10 19:16] VITALS: BP 100/73; PULSE 66
== END 2021-09-10 19:16 | disposition home or self-care (01) ==
LOC: COL.ER 17:21
DX: S22.069A Unspecified fracture of T7-T8 vertebra, initial encounter for closed fracture (principal); I12.9 Hypertensive chronic kidney disease with stage 1 through stage 4 chronic kidney disease, or unspecified chronic kidney disease; N18.30 Chronic kidney disease, stage 3 unspecified; I25.10 Atherosclerotic heart disease of native coronary artery without angina pectoris; Z91.040 Latex allergy status; Z79.82 Long term (current) use of aspirin; Z79.899 Other long term (current) drug therapy; X58.XXXA Exposure to other specified factors, initial encounter

== ENCOUNTER → 2021-09-21 | Outpatient (CLI) | payer MEDICARE, BC | LOC: COL.RAD 09:56 | DX: S32.019A Unspecified fracture of first lumbar vertebra, initial encounter for closed fracture (principal); S22.069A Unspecified fracture of T7-T8 vertebra, initial encounter for closed fracture; S22.059A Unspecified fracture of T5-T6 vertebra, initial encounter for closed fracture ==

== ENCOUNTER 2021-09-29 12:44 | Outpatient (CLI) | payer MEDICARE, BC ==
[~2021-09-29] VITALS: Ht 160 cm; Wt 54.2 kg
[2021-09-29] VITALS (8 sets, daily range): BP systolic 112–193; BP diastolic 65–101; PULSE 50–68; TEMP 97.7–98.2
--- NOTE | 2021-09-29 14:32 | NUR ---
SEE MERGE FOR ALL MEDICATION ADMINISTRATION TIMES/DOSAGES AND INTRA/POST PROCEDURE SEDATION ASSESSMENTS.
--- NOTE | 2021-09-29 18:41 | NUR ---
PATIENT CAME BACK TO UNIT AT APPROX 1500; PATIENT WAS ALERT AND ORIENTED BUT LETHARGIC. PATIENT WAS STABLE WITH VITAL SIGNS WNL WITH THE EXCEPTION OF BLOOD PRESSURE, WHICH WAS HYPERTENSIVE IT IS NORMALLY. PATIENT REMAINED UNDER OBSERVATION POST-PROCEDURE FOR APPROX 2 HOURS AND WAS DISCHARGED HOME. PATIENT LEFT THE UNIT WHEELED OUT BY THIS NURSE, ACCOMPANIED BY HER DAUGHTER.
== END 2021-10-05 16:12 ==
LOC: COL.CAR 12:44
DX: S22.050A Wedge compression fracture of T5-T6 vertebra, initial encounter for closed fracture (principal); M81.0 Age-related osteoporosis without current pathological fracture; Z87.81 Personal history of (healed) traumatic fracture; Z87.891 Personal history of nicotine dependence
CPT/HCPCS: C1713; J1200; J2250; J3010

== ENCOUNTER 2021-10-11 12:06 | Emergency (ER) | payer MEDICARE, BC ==
[~2021-10-11] VITALS: Ht 160 cm; Wt 56.8 kg
[2021-10-11 12:32] VITALS: TEMP 98.2
[2021-10-11 14:28] LABS: COLLECTION METHOD CLEAN CATCH
[2021-10-11 14:37] LABS: PH 7 (5-8); SQUAMOUS EPITHELIAL 0-2 /hpf (0-10); URINE APPEARANCE Clear (CLEAR/HAZY); URINE BACTERIA None Seen /hpf (NONE SEEN); URINE BILIRUBIN Negative (NEGATIVE); URINE BLOOD Negative (NEGATIVE); URINE COLOR Amber (YELLOW); URINE GLUCOSE Negative (NEGATIVE); URINE KETONE Trace (NEGATIVE); URINE LEUKOCYTE ESTERASE Negative (NEGATIVE); URINE NITRATE Positive (NEGATIVE); URINE PROTEIN(semi-quant) 2+ (NEGATIVE); URINE RBC 0-2 /hpf (0-2); URINE UROBILINOGEN >=4.0 (NEGATIVE)
[2021-10-11 15:21] LABS: BASO % 0.6 % (0.0-2.0); EOS # 0.1 K/mm3 (0.0-0.7); EOS % 1.2 % (0.0-4.0); GRAN # 3.7 K/mm3 (1.4-6.5); GRAN % 71.2 % (42.2-75.2); LYMPH # 0.9 K/mm3 (1.2-3.4); LYMPH % 18.2 % (20.0-51.0); MEAN CELL VOLUME 85 fl (80.0-100.0); MEAN CORPUSCULAR HEMOGLOBIN 26 pg (27-31); MEAN CORPUSCULAR HGB CONC 31 g/dl (33.0-37.0); MEAN PLATELET VOLUME 9.6 fl (7.4-10.4); MONO # 0.4 K/mm3 (0.1-0.6); MONO % 8.4 % (1.7-9.3); PLATELET COUNT 206 K/mm3 (130-400); RED BLOOD COUNT 4.17 M/mm3 (4.10-5.30); REDCELL DISTRIBUTION WIDTH-CV 14.6 % (11.5-14.5)
[2021-10-11 15:24] LABS: HEMATOCRIT 35.4 % (37.0-47.0)
[2021-10-11 15:37] LABS: ALBUMIN 4.1 gm/dL (3.4-4.8); BILIRUBIN,TOTAL 0.7 mg/dL (0.2-1.2); C-REACTIVE PROTEIN 0.11 mg/dL (0.00-0.50); CALCIUM 9.2 mg/dL (8.4-10.2); CREATININE, serum 1.29 mg/dL (0.57-1.11); POTASSIUM 4.3 mmol/L (3.5-4.5)
[2021-10-11] MEDS ORDERED: CIPRO 500MG TA500 MG PO (16:34)
[2021-10-11] MEDS ORDERED: NORCO 325 MG-51 TAB PO (16:43)
[2021-10-11 17:00] VITALS: BP 141/73; PULSE 73
== END 2021-10-11 17:00 | disposition home or self-care (01) ==
LOC: COL.ER 12:06
PROVIDERS: Emergency Medicine; Family Medicine
DX: N30.00 Acute cystitis without hematuria (principal)
CPT/HCPCS: J0696; J2405; J3010; J7120

== ENCOUNTER → 2021-10-26 | Outpatient (CLI) | payer MEDICARE, BC | LOC: ZCOL.LAB 17:20 | DX: Z01.89 Encounter for other specified special examinations (principal) ==

== ENCOUNTER 2021-11-02 18:36 | Inpatient (IN) | payer MEDICARE, BC ==
[~2021-11-02] VITALS: Ht 160 cm; Wt 53.0 kg
[2021-11-02 19:21] LABS: BASO % 0.5 % (0.0-2.0); EOS # 0.1 K/mm3 (0.0-0.7); EOS % 2.1 % (0.0-4.0); GRAN # 2.4 K/mm3 (1.4-6.5); GRAN % 62.4 % (42.2-75.2); LYMPH % 25.2 % (20.0-51.0); MEAN CELL VOLUME 84 fl (80.0-100.0); MEAN CORPUSCULAR HGB CONC 32 g/dl (33.0-37.0); MEAN PLATELET VOLUME 10.1 fl (7.4-10.4); MONO # 0.4 K/mm3 (0.1-0.6); MONO % 9.5 % (1.7-9.3); PLATELET COUNT 144 K/mm3 (130-400); RED BLOOD COUNT 3.47 M/mm3 (4.10-5.30); REDCELL DISTRIBUTION WIDTH-CV 16.2 % (11.5-14.5)
[2021-11-02 19:23] LABS: HEMATOCRIT 29.2 % (37.0-47.0); HEMOGLOBIN 9.2 g/dl (12.5-16.0); MEAN CORPUSCULAR HEMOGLOBIN 27 pg (27-31)
[2021-11-02 19:29] LABS: PROTHROMBIN TIME 11.4 SECONDS (9.7-12.8)
[2021-11-02 19:39] LABS: ALBUMIN 3.5 gm/dL (3.4-4.8); BILIRUBIN,TOTAL 0.3 mg/dL (0.2-1.2); CALCIUM 8.6 mg/dL (8.4-10.2); CREATININE, serum 1.21 mg/dL (0.57-1.11); POTASSIUM 4.4 mmol/L (3.5-4.5); TOTAL PROTEIN 6.2 gm/dL (6.2-8.1)
[2021-11-02 19:46] LABS: TROPONIN-I 0.024 ng/mL (0.00-0.033)
[2021-11-02 22:27] LABS: COLLECTION METHOD CLEAN CATCH
[2021-11-02 22:34] LABS: PH 8 (5-8); SQUAMOUS EPITHELIAL None Seen /hpf (0-10); URINE APPEARANCE Clear (CLEAR/HAZY); URINE BACTERIA None Seen /hpf (NONE SEEN); URINE BILIRUBIN Negative (NEGATIVE); URINE BLOOD Negative (NEGATIVE); URINE COLOR Colorless (YELLOW); URINE GLUCOSE Negative (NEGATIVE); URINE KETONE Negative (NEGATIVE); URINE LEUKOCYTE ESTERASE Negative (NEGATIVE); URINE NITRATE Negative (NEGATIVE); URINE PROTEIN(semi-quant) Negative (NEGATIVE); URINE RBC 0-2 /hpf (0-2); URINE UROBILINOGEN Negative (NEGATIVE)
[2021-11-02 23:06] LABS: TSH w REFLEX 0.477 uIU/mL (0.350-4.940)
[2021-11-02] MEDS ORDERED: DESYREL 50MG50 MG PO (23:44)
[2021-11-03] VITALS (1197 sets, daily range): BP systolic 96–181; BP diastolic 60–96; PULSE 60–65; TEMP 97.7–98.1; O2SAT 81–100
[2021-11-03] MEDS ORDERED: COREG 25MG25 MG/TAB PO (00:21)
[2021-11-03] MEDS ORDERED: PROTONIX 40MG T40 MG PO (00:22)
[2021-11-03] MEDS ORDERED: CATAPRES 0.1MG0.1 MG PO (00:24)
[2021-11-03] MEDS ORDERED: PLAVIX 75MG TAB75 MG PO (00:24)
[2021-11-03] MEDS ORDERED: DEMADEX 20MG20 M1 PO (00:25)
[2021-11-03] MEDS ORDERED: ZOFRAN ODT4 MG PO (00:25)
[2021-11-03] MEDS ORDERED: COZAAR 50MG50 MG/TAB PO (00:25)
[2021-11-03] MEDS ORDERED: ASPIRIN 81M81 MG/TA2 PO (00:30)
--- NOTE | 2021-11-03 01:00 | NUR ---
PATIENT ADMITED TO ROOM 4 FROM ED, TRANSFERED TO BED AND CONNECTED TO MONITORS CURRENTLY ON NITRO DRIP AT 30 MCG/MIN, ADMISSION HISTORY AND ASSESSMENT COMPLETED NOTED THAT PATIENT DID HAVE 700 ML OF CLEAR PALE YELLOW URINE IN ROGERS CATHETER.
--- NOTE | 2021-11-03 03:00 | NUR ---
NOTED CONSULT TO CARDIOLOGY, SUE RIVAS STATES OK TO WAIT TO AM TO NOTIFY
[2021-11-03 05:57] LABS: BASO % 0.5 % (0.0-2.0); EOS # 0.1 K/mm3 (0.0-0.7); GRAN # 2.2 K/mm3 (1.4-6.5); GRAN % 59.8 % (42.2-75.2); MEAN CELL VOLUME 87 fl (80.0-100.0); MEAN CORPUSCULAR HGB CONC 31 g/dl (33.0-37.0); MONO # 0.4 K/mm3 (0.1-0.6); MONO % 10.4 % (1.7-9.3); PLATELET COUNT 148 K/mm3 (130-400); RED BLOOD COUNT 3.18 M/mm3 (4.10-5.30)
[2021-11-03] MEDS ORDERED: DULCOLAX STOOL100 MG PO (06:02)
[2021-11-03 06:04] LABS: HEMATOCRIT 27.6 % (37.0-47.0); HEMOGLOBIN 8.6 g/dl (12.5-16.0); MEAN CORPUSCULAR HEMOGLOBIN 27 pg (27-31)
[2021-11-03] MEDS ORDERED: ASPIRIN E.C. 8181 MG PO (06:04)
[2021-11-03] MEDS ORDERED: MIRALAX PA17 GM/Dose PO (06:07)
[2021-11-03 06:17] LABS: CALCIUM 8.6 mg/dL (8.4-10.2); CREATININE, serum 1.2 mg/dL (0.57-1.11); POTASSIUM 3.9 mmol/L (3.5-4.5)
[2021-11-03] MEDS ORDERED: BUSPAR5 MG PO (06:34)
[2021-11-03] MEDS ORDERED: MASON NATURAL2000 IU PO (06:49)
--- NOTE | 2021-11-03 07:10 | NUR ---
RECEIVED REPORT FROM ES RENNER. PT HELPED TO SIT UP AND EAT BREAKFAST AT THIS TIME IN BED. PT ON RA. VSS. CALL LIGHT WITHIN REACH. FC PATENT AND DRAINING TO GRAVITY. SEE IV GTT FLOWSHEET.
--- NOTE | 2021-11-03 14:35 | NUR ---
SANDRA BROWN AND SANDRA OSORIO WITH DR LEIGH'S OFFICE IS AT BEDSIDE FOR ASSESSMENT. DISCUSSED POC WITH PT. VERBALIZED UNDERSTANDING. CLARIFIED WITH PROVIDER ABOUT SBP PARAMETERS TO KEEP LESS THAN 140 IS STILL OK, SHE STATES YES THAT EVEN 150 WOULD BE OK FOR THIS PT D/T HER HISTORY. ALSO DISCUSSED WHAT THIS RN HAS TRIED TODAY WITH HOSPITALIST AND IF IT IS OK TO KEEP TRYING TO WEAN DOWN AND GET OFF THE NITRO GTT IF BP STABLE. PROVIDER STATES IT IS OK TO WEAN OFF THE NITRO GTT IF BP TOLERATES.
[2021-11-04] VITALS (731 sets, daily range): BP systolic 126–160; BP diastolic 52–99; PULSE 54–73; TEMP 97.8–98.1; O2SAT 68–100
--- NOTE | 2021-11-04 01:45 | NUR ---
RECEIVED REPORT FROM ES RENNER.
[2021-11-04 06:00] LABS: BASO % 0.4 % (0.0-2.0); EOS # 0.1 K/mm3 (0.0-0.7); EOS % 1.2 % (0.0-4.0); GRAN # 4.2 K/mm3 (1.4-6.5); GRAN % 73.9 % (42.2-75.2); LYMPH # 0.9 K/mm3 (1.2-3.4); LYMPH % 15.4 % (20.0-51.0); MEAN CELL VOLUME 86 fl (80.0-100.0); MEAN CORPUSCULAR HGB CONC 31 g/dl (33.0-37.0); MEAN PLATELET VOLUME 10.2 fl (7.4-10.4); MONO # 0.5 K/mm3 (0.1-0.6); MONO % 8.9 % (1.7-9.3); PLATELET COUNT 140 K/mm3 (130-400); RED BLOOD COUNT 3.39 M/mm3 (4.10-5.30); REDCELL DISTRIBUTION WIDTH-CV 16.1 % (11.5-14.5)
[2021-11-04 06:06] LABS: HEMATOCRIT 29.3 % (37.0-47.0); HEMOGLOBIN 9.1 g/dl (12.5-16.0); MEAN CORPUSCULAR HEMOGLOBIN 27 pg (27-31)
[2021-11-04 06:19] LABS: CALCIUM 8.7 mg/dL (8.4-10.2); CREATININE, serum 2.04 mg/dL (0.57-1.11); POTASSIUM 4.3 mmol/L (3.5-4.5)
--- NOTE | 2021-11-04 07:00 | NUR ---
RECEIVED REPORT FROM ES HOBBS. PT SLEEPING IN BED. PT ON RA. VSS. CALL LIGHT WITHIN REACH. FC PATENT AND DRAINING TO GRAVITY. SEE IV GTT FLOWSHEET.
--- NOTE | 2021-11-04 08:23 | NUR ---
(Late Entry) On 11/03/21, Slitter Helper met with patient and patient's daughter, Yaneli (ph#[phone]) to discuss discharge planning. Patient lives alone in [place] and advised Yaneli checks in on her often. Patient sees Dr. Ortiz for primary care and also reports she has services from [facility]. Patient currently receives nursing services but is interested in having PT/OT. Patient reports she is normally independent with ADLS and uses a walker for ambulation. Patient reports she also has many grab bars throughout her home. Patient advised her son, Raymon is her DPOA-HC and the best way to reach him is through his , Phyllis (ph#[phone]). SW contacted NELSY Frey at Dr. Ortiz's office and they did not have a copy of DPOA-HC on file. SW contacted [facility] and faxed updates. Discharge Plan: Home with [facility]
--- NOTE | 2021-11-04 17:37 | NUR ---
REPORT CALLED TO ES SENA ON MEDICAL. PT TO TRANSFER VIA WC TO 357 ON RA. ALL PERSONAL BELONGINGS SENT WITH PT.
[2021-11-04 21:59] LABS: CALCIUM 9.2 mg/dL (8.4-10.2); CREATININE, serum 1.94 mg/dL (0.57-1.11); MAGNESIUM 2.4 mg/dL (1.6-2.6); POTASSIUM 4.7 mmol/L (3.5-4.5)
[2021-11-05 00:21] VITALS: BP 145/57; PULSE 78; TEMP 97.6
[2021-11-05 04:23] VITALS: BP 143/49; PULSE 57; TEMP 98.2
[2021-11-05 05:47] LABS: BASO % 0.3 % (0.0-2.0); EOS # 0.1 K/mm3 (0.0-0.7); EOS % 2.1 % (0.0-4.0); GRAN # 1.9 K/mm3 (1.4-6.5); GRAN % 55.3 % (42.2-75.2); LYMPH % 29.6 % (20.0-51.0); MEAN CELL VOLUME 85 fl (80.0-100.0); MEAN CORPUSCULAR HGB CONC 32 g/dl (33.0-37.0); MEAN PLATELET VOLUME 10.5 fl (7.4-10.4); MONO # 0.4 K/mm3 (0.1-0.6); MONO % 12.7 % (1.7-9.3); PLATELET COUNT 137 K/mm3 (130-400); RED BLOOD COUNT 3.49 M/mm3 (4.10-5.30); REDCELL DISTRIBUTION WIDTH-CV 16.2 % (11.5-14.5)
[2021-11-05 05:51] LABS: HEMATOCRIT 29.6 % (37.0-47.0); HEMOGLOBIN 9.4 g/dl (12.5-16.0); MEAN CORPUSCULAR HEMOGLOBIN 27 pg (27-31)
[2021-11-05 05:57] LABS: CALCIUM 8.7 mg/dL (8.4-10.2); CREATININE, serum 1.77 mg/dL (0.57-1.11); POTASSIUM 4.5 mmol/L (3.5-4.5)
--- NOTE | 2021-11-05 06:15 | NUR ---
ASSESSMENT COMPLETE FOR THIS SHIFT. PT SITTING ON THE SIDE OF THE BED, COMPLAINING OF LEG CRAMPS. IT WAS TOO EARLY TO GIVE NORCO, SO I WRAPPED HER LEGS IN A WARM BLANKET PER HER REQUEST AND CALLED THE HOSPITALIST. HOSPITALIST ORDERED BMP AND MAGNESIUM LABS. NO CHANGE TO PAIN MEDS. NORCO GIVEN SOON I COULD. NORCO SEEMS TO WORK FOR A COUPLE OF HOURS FOR PT, BUT AFTER THAT, PT SEEMS TO BE IN A LOT OF PAIN. WILL PASS ON TO DAYSHIFT RN, TO SEE IF PT CAN GET SOMETHING STRONGER OR SEE IF THE Q6HRS NORCO CAN BE CHANGED TO Q4HRS. PT DENIED PALPITATIONS, SOB, N,V,D OR DIZZINESS. PT EXPRESSED NO OTHER NEEDS AT THIS TIME. CALL LIGHT WITHIN REACH.
[2021-11-05 07:43] VITALS: BP 116/92; PULSE 46; TEMP 97.7
--- NOTE | 2021-11-05 08:20 | NUR ---
PT LAYING SUPINE IN BED ON ROOM AIR. PT STATES THAT SHE IS "FEELING PRETTY GOOD AND IS READY TO GO HOME." PT STATES THAT SHE WOULD LIKE SOME HELP ORDERING BREAKFAST. A TRAY WAS ORDERED FOR HER. ROGERS IS DRAINING AT BEDSIDE YELLOW URINE. PT STATES NO OTHER NEEDS AT THIS TIME. CALL LIGHT IS WITHIN REACH.
[2021-11-05 12:17] VITALS: BP 133/59; PULSE 64; TEMP 98
--- NOTE | 2021-11-05 13:12 | NUR ---
First visit from the nursery supervisor No needs right now
[2021-11-05 16:03] VITALS: BP 146/70; PULSE 45; TEMP 97.7
--- NOTE | 2021-11-05 18:30 | NUR ---
PT LAYING SUPINE IN BED WATCHING TV. PT STATES "MY BACK PAIN IS A LOT BETTER SINCE YOU GAVE ME THAT PAIN PILL." PT STATES THAT SHE IS NOT HAVING ANY N/V AT THIS TIME. PT STATES NO NEEDS. CALL LIGHT IS WITHIN REACH.
[2021-11-05 21:30] VITALS: BP 147/72; PULSE 69; TEMP 97.4
[2021-11-06 00:52] VITALS: BP 152/47; PULSE 76; TEMP 98.4
[2021-11-06 03:19] VITALS: BP 175/53; PULSE 68; TEMP 97.4
--- NOTE | 2021-11-06 06:10 | NUR ---
ASSESSMENT COMPLETE FOR THIS SHIFT. PT LAYING IN BED KIND OF HALF BALLED UP COMPLAINING OF LEG CRAMPS. IT WAS TOO EARLY TO GIVE NORCO. SO I AGAIN WRAPPED PT'S LEGS IN WARM BLANKETS AND REPOSTIONED HER UNTIL SHE COULD HAVE MORE NORCO. HOSPITALIST CALLED, A COUPLE OF HOURS AFTER PT'S FIRST DOSE OF NORCO FOR TONIGHT, WITH CONCERNS ABOUT PT'S PAIN. HOSPITALIST ORDERED ONE DOSE OF MORPHINE FOR PT. PT WAS SO GRATEFUL AND ALTHOUGH SHE ONLY HAD RELIEF FOR ABOUT 45 MINUTES, PT FELT IT WAS WONDERFUL TO JUST HAVE A REPRIEVE, EVEN FOR A SHORT TIME. PT DENIED PALPITATIONS, SOB, N,V,D OR DIZZINESS. PT EXPRESSED NO OTHER NEEDS AT THIS TIME. CALL LIGHT WITHIN REACH.
[2021-11-06 07:42] VITALS: BP 136/68; PULSE 76; TEMP 97.7
[2021-11-06 07:53] LABS: BASO % 0.2 % (0.0-2.0); EOS # 0.1 K/mm3 (0.0-0.7); GRAN % 66.2 % (42.2-75.2); LYMPH # 0.9 K/mm3 (1.2-3.4); LYMPH % 19.2 % (20.0-51.0); MEAN CELL VOLUME 86 fl (80.0-100.0); MEAN CORPUSCULAR HGB CONC 32 g/dl (33.0-37.0); MEAN PLATELET VOLUME 10.5 fl (7.4-10.4); MONO # 0.6 K/mm3 (0.1-0.6); MONO % 12.2 % (1.7-9.3); PLATELET COUNT 139 K/mm3 (130-400); RED BLOOD COUNT 3.43 M/mm3 (4.10-5.30); REDCELL DISTRIBUTION WIDTH-CV 16.2 % (11.5-14.5)
[2021-11-06 07:57] LABS: HEMATOCRIT 29.4 % (37.0-47.0); HEMOGLOBIN 9.5 g/dl (12.5-16.0); MEAN CORPUSCULAR HEMOGLOBIN 28 pg (27-31)
--- NOTE | 2021-11-06 08:00 | NUR ---
Patient laying in bed awake. A&Ox3. VSS. IV CDI. Contact precautions in place. Patient assisted with repositioning in bed. Call light within reach. Bed alarm on
[2021-11-06 08:05] LABS: CALCIUM 8.7 mg/dL (8.4-10.2); CREATININE, serum 1.66 mg/dL (0.57-1.11); POTASSIUM 4.4 mmol/L (3.5-4.5)
[2021-11-06] MEDS ORDERED: LASIX 20MG TABL20 MG PO (09:15)
[2021-11-06 11:27] VITALS: BP 139/53; PULSE 59; TEMP 97.8
--- NOTE | 2021-11-06 13:45 | NUR ---
Patient taken by wheelchair to ER entrance with daughter. Discharge paperwork reviewed with the patient and personal belongings with the patient. No further needs expressed.
== END 2021-11-06 13:45 | disposition home health service (06) | DRG 305 ==
LOC: COL.ER 18:36 → ICU 21:32 → EDBEDREQTM 23:33 → EDBEDREQ 23:33 → ICU 11-03 07:12 → MEDICAL 11-04 15:52
PROVIDERS: Nurse Practitioner Family; Nurse Practitioner Primary Care; Physician Assistant; Student in an Organized Health Care Education/Training Program; ADMIT Internal Medicine
DX: I16.1 Hypertensive emergency (principal); E87.1 Hypo-osmolality and hyponatremia; N17.9 Acute kidney failure, unspecified; J81.1 Chronic pulmonary edema; I25.119 Atherosclerotic heart disease of native coronary artery with unspecified angina pectoris; E78.5 Hyperlipidemia, unspecified; M19.90 Unspecified osteoarthritis, unspecified site; G89.29 Other chronic pain; Z66 Do not resuscitate; E03.9 Hypothyroidism, unspecified; E05.80 Other thyrotoxicosis without thyrotoxic crisis or storm; K59.09 Other constipation; K21.9 Gastro-esophageal reflux disease without esophagitis; F41.9 Anxiety disorder, unspecified; G47.00 Insomnia, unspecified; I48.0 Paroxysmal atrial fibrillation; I08.3 Combined rheumatic disorders of mitral, aortic and tricuspid valves; N18.9 Chronic kidney disease, unspecified; I12.9 Hypertensive chronic kidney disease with stage 1 through stage 4 chronic kidney disease, or unspecified chronic kidney disease; Z96.651 Presence of right artificial knee joint; R33.9 Retention of urine, unspecified; Z87.891 Personal history of nicotine dependence; Z95.1 Presence of aortocoronary bypass graft; Z95.810 Presence of automatic (implantable) cardiac defibrillator; Z79.82 Long term (current) use of aspirin; Z23 Encounter for immunization
CPT/HCPCS: 99223-AI; 99233-AI; 99239; J1644; J1650; J2270

== ENCOUNTER 2021-12-03 13:48 | Day surgery (SDC) | payer MEDICARE, BC ==
[2006-07-04 08:06] VITALS: BP 131/66
[~2021-12-03] VITALS: Ht 162.6 cm; Wt 51.0 kg
[~2021-12-03 13:48] MED LIST changes: +DEMADEX 20MG20 M1 PO; +DESYREL 50MG50 MG PO; +DULCOLAX STOOL100 MG PO; -LEVOXYL0.088 MG PO; +LEVOXYL0.112 MG PO; +MASON NATURAL2000 IU PO; +ZOFRAN ODT4 MG PO
[2021-12-03] MEDS ORDERED: COZAAR 25MG25 MG/TAB PO (14:08)
[2021-12-03] MEDS ORDERED: ZOFRAN 4MG T4 MG/TAB PO (14:09)
[2021-12-03] MEDS ORDERED: NORCO 325 MG-51 TAB PO (14:11)
[2021-12-03 14:13] VITALS: BP 137/71; PULSE 60; TEMP 97.7
[2021-12-03 15:45] VITALS: BP 144/93; PULSE 63; TEMP 97.7
[2021-12-03 16:00] VITALS: BP 167/76; PULSE 62
--- NOTE | 2021-12-03 16:22 | NUR ---
Pt returned via cart to recliner in bay post procedure. Tolerated oral intake. VS remain stable-see flowsheet. IV removed, pressure dressing applied. Discharge teaching completed, pt and daughter verbalized understanding. Take n via wheelchair to private vehicle for dc home with daughter driving.
== END 2021-12-03 16:22 | disposition home or self-care (01) ==
LOC: SDCO 13:48
DX: K29.50 Unspecified chronic gastritis without bleeding (principal)
CPT/HCPCS: J2704; J7120

== ENCOUNTER 2021-12-16 08:24 | Observation (INO) | payer MEDICARE, BC ==
[~2021-12-16] VITALS: Ht 162.6 cm; Wt 52.2 kg
[~2021-12-16 08:24] MED LIST changes: +COZAAR 25MG25 MG/TAB PO; +ZOFRAN 4MG T4 MG/TAB PO
[2021-12-16 08:49] LABS: BASO % 0.3 % (0.0-2.0); EOS % 1.3 % (0.0-4.0); GRAN % 66.2 % (42.2-75.2); HEMOGLOBIN 11.4 g/dl (12.5-16.0); LYMPH # 0.8 K/mm3 (1.2-3.4); LYMPH % 24.7 % (20.0-51.0); MEAN CELL VOLUME 86 fl (80.0-100.0); MEAN CORPUSCULAR HEMOGLOBIN 28 pg (27-31); MEAN CORPUSCULAR HGB CONC 32 g/dl (33.0-37.0); MEAN PLATELET VOLUME 10.3 fl (7.4-10.4); MONO # 0.2 K/mm3 (0.1-0.6); MONO % 7.2 % (1.7-9.3); PLATELET COUNT 141 K/mm3 (130-400); RED BLOOD COUNT 4.11 M/mm3 (4.10-5.30); REDCELL DISTRIBUTION WIDTH-CV 17.4 % (11.5-14.5)
[2021-12-16 08:53] LABS: HEMATOCRIT 35.4 % (37.0-47.0)
[2021-12-16 09:05] LABS: ALBUMIN 3.8 gm/dL (3.4-4.8); BILIRUBIN,TOTAL 0.6 mg/dL (0.2-1.2); CALCIUM 9.2 mg/dL (8.4-10.2); CREATININE, serum 1.64 mg/dL (0.57-1.11); POTASSIUM 3.8 mmol/L (3.5-4.5); TOTAL PROTEIN 6.6 gm/dL (6.2-8.1)
[2021-12-16 09:11] LABS: TROPONIN-I 0.017 ng/mL (0.00-0.033)
[2021-12-16 10:51] LABS: PROTHROMBIN TIME 11.6 SECONDS (9.7-12.8)
[2021-12-16 10:53] LABS: PARTIAL THROMBOPLASTIN TIME 32.2 SECONDS (26.0-37.0)
--- NOTE | 2021-12-16 13:24 | NUR ---
ADMISSION INTAKE AND ASSESSMENT COMPLETED. PT ORIENTED TO ROOM. WILL ATTEMPT TO CONTACT PHARMACY FOR UPDATED MED LIST. PT DENIES ANY PAIN, SOB, OR CHEST PAIN AT THIS TIME. WILL CONTINUE TO MONITOR.
[2021-12-16 13:37] VITALS: BP 157/41; PULSE 66; TEMP 98.1
[2021-12-16] MEDS ORDERED: LIPITOR 10MG10 MG PO (15:20)
[2021-12-16] MEDS ORDERED: ALDACTONE 25MG25 M1 PO (15:21)
[2021-12-16] MEDS ORDERED: CYANOCOBAL1000 MCG/1 IM (15:22)
[2021-12-16] MEDS ORDERED: NORCO 325 MG-51 TAB PO (15:23)
[2021-12-16] MEDS ORDERED: LASIX 20MG TABL20 MG PO (15:23)
[2021-12-16] MEDS ORDERED: FERROUSAL325 MG PO (15:24)
[2021-12-16 15:39] VITALS: BP 136/78; PULSE 48; TEMP 98.9
[2021-12-16 16:34] LABS: ARTERIAL BLD GAS O2 SATURATION 97.6 % (92-100); ARTERIAL BLD GAS TCO2 CT 24.8; ARTERIAL BLOOD GAS BASE EXCESS 1.1 (-2-2); ARTERIAL BLOOD GAS HCO3 23.8 meq/L (22-26); ARTERIAL BLOOD GAS PCO2 31.8 mmHg (35-45); ARTERIAL BLOOD GAS PO2 85.7 mmHg (80-100); ARTERIAL BLOOD GAS pH 7.49 (7.35-7.45)
--- NOTE | 2021-12-16 17:13 | NUR ---
THIS RN COMPLETED A DEVICE DOWNLOAD AT THIS TIME.
[2021-12-16 21:01] VITALS: BP 141/54; PULSE 58; TEMP 97.9
[2021-12-17 00:31] VITALS: BP 149/54; PULSE 51; TEMP 98
--- NOTE | 2021-12-17 04:26 | NUR ---
pt c/o low back pain @HS, [place] given x1, prn trazadone given per pt request for sleep. pt's chronic sanderson switched from leg bag to large bag during the noc. HepXa drawn during the noc was 0.22, Heparin gtt increased to 6.5cc/hr @0045, next level due @0645. pt on O2 for comfort, states she uses nasal strips at home, feels like she is SOB without them, initially placed on 2L per NC but pt requested increase, now @4L.
[2021-12-17 04:45] VITALS: BP 160/54; PULSE 57; TEMP 97.9
--- NOTE | 2021-12-17 06:33 | NUR ---
PT c/o headache this am, Bowers given @0600, pt still feels like it's difficult to get air in thru her nares, O2 @4L, bubbler added.
[2021-12-17 06:49] LABS: BASO % 0.3 % (0.0-2.0); EOS # 0.1 K/mm3 (0.0-0.7); EOS % 1.6 % (0.0-4.0); GRAN # 1.9 K/mm3 (1.4-6.5); GRAN % 60.9 % (42.2-75.2); HEMOGLOBIN 11.4 g/dl (12.5-16.0); LYMPH # 0.9 K/mm3 (1.2-3.4); LYMPH % 27.1 % (20.0-51.0); MEAN CELL VOLUME 87 fl (80.0-100.0); MEAN CORPUSCULAR HEMOGLOBIN 28 pg (27-31); MEAN CORPUSCULAR HGB CONC 32 g/dl (33.0-37.0); MEAN PLATELET VOLUME 10.2 fl (7.4-10.4); MONO # 0.3 K/mm3 (0.1-0.6); MONO % 10.1 % (1.7-9.3); PLATELET COUNT 146 K/mm3 (130-400); RED BLOOD COUNT 4.14 M/mm3 (4.10-5.30); REDCELL DISTRIBUTION WIDTH-CV 17.3 % (11.5-14.5)
[2021-12-17 06:57] LABS: CALCIUM 9.1 mg/dL (8.4-10.2); CREATININE, serum 1.35 mg/dL (0.57-1.11); POTASSIUM 3.9 mmol/L (3.5-4.5)
[2021-12-17 07:10] LABS: HEMATOCRIT 35.9 % (37.0-47.0)
[2021-12-17 07:53] VITALS: BP 105/77; PULSE 64; TEMP 98.1
[2021-12-17] MEDS ORDERED: APRESOLINE 25MG25 MG PO (09:32)
--- NOTE | 2021-12-17 09:32 | NUR ---
Follow-up visit; Patient thanked Information Services Consultant for looking in on her again and helping her with her phone to call her daughter. Information Services Consultant offered God's blessings.
--- NOTE | 2021-12-17 10:42 | NUR ---
Plant Wire Chief met with patient to discuss discharge planning. Patient lives alone in [place] and sees Dr. Ortiz for primary care. Patient has medications delivered to her from [facility] and has no trouble affording her medications. Patient has a walker at home and no other DME. RT assessed patient and she will not need home oxygen. Patient reports she is independent with ADLS and has Home Health services from [facility]. Patient plans to return home today. Patient states her son, Bulmaro is her DPOA-HC and her daughter, Yaneli comes over to check on her often. SW contacted Yaneli and reviewed the discharge plan and she is in agreement. SW then contacted [facility] and faxed referral and discharge orders. Discharge Plan: Home with [facility]
[2021-12-17 11:15] LABS: ARTERIAL BLD GAS O2 SATURATION 94.7 % (92-100); ARTERIAL BLOOD GAS BASE EXCESS -1.2 (-2-2); ARTERIAL BLOOD GAS HCO3 22.4 meq/L (22-26); ARTERIAL BLOOD GAS PCO2 33.8 mmHg (35-45); ARTERIAL BLOOD GAS PO2 73.2 mmHg (80-100); ARTERIAL BLOOD GAS pH 7.44 (7.35-7.45)
--- NOTE | 2021-12-17 11:17 | NUR ---
The patient was downgraded to observation status. NELSY met with the patient to notify. NELSY presented and read the IM form outloud to the patient. The patient verbalized understanding and signed the form. NELSY placed a copy in the patient's discharge folder. The patient is to discharge back home today, 12/17, and resume home health services for snf/PT/OT from [facility]. No additional needs at this time.
[2021-12-17 11:38] VITALS: BP 134/34; PULSE 68; TEMP 97.9
[2021-12-17 13:10] VITALS: BP 120/64
--- NOTE | 2021-12-17 14:30 | NUR ---
Scheduled medications given. Shift assessment performed. Pain medication given once this shift for back pain rated a 9/10. Heating pad also provided. Heparin gtt dc'd per orders. Patient deemed fit for discharge. Discharge education/instructions given. IV's DC'd, catheter intact, no signs of phlebitis. All questions answered. Patient denies any further needs at this time. VSS. Patient A&O. Patient escorted from building via wheelchair, by [facility] staff. Daughter transporting home.
== END 2021-12-17 14:45 | disposition home health service (06) ==
LOC: COL.ER 08:24 → MEDICAL 11:43
PROVIDERS: Internal Medicine Cardiovascular Disease; Internal Medicine Interventional Cardiology; Physician Assistant; Student in an Organized Health Care Education/Training Program
DX: R07.9 Chest pain, unspecified (principal); I25.118 Atherosclerotic heart disease of native coronary artery with other forms of angina pectoris; J96.01 Acute respiratory failure with hypoxia; E05.80 Other thyrotoxicosis without thyrotoxic crisis or storm; N17.9 Acute kidney failure, unspecified; E05.90 Thyrotoxicosis, unspecified without thyrotoxic crisis or storm; I10 Essential (primary) hypertension; E78.5 Hyperlipidemia, unspecified; R73.03 Prediabetes; G89.29 Other chronic pain; K59.09 Other constipation; K21.9 Gastro-esophageal reflux disease without esophagitis; F41.9 Anxiety disorder, unspecified; F32.A Depression, unspecified; G47.00 Insomnia, unspecified; E87.1 Hypo-osmolality and hyponatremia; R63.4 Abnormal weight loss; Z66 Do not resuscitate; R11.0 Nausea; Z95.0 Presence of cardiac pacemaker; Z79.82 Long term (current) use of aspirin; Z79.890 Hormone replacement therapy; Z79.899 Other long term (current) drug therapy; Z87.891 Personal history of nicotine dependence; Z63.4 Disappearance and death of family member; Z95.1 Presence of aortocoronary bypass graft
CPT/HCPCS: 99223-AI; 99239; G0378; J1644; J2270

== ENCOUNTER → 2022-01-28 | Outpatient (CLI) | payer MEDICARE, BC ==
[~2022-01-28] MED LIST changes: +CYANOCOBAL1000 MCG/1 IM; +FERROUSAL325 MG PO
== END ==
LOC: COL.RAD 11:51
DX: M50.222 Other cervical disc displacement at C5-C6 level (principal); M50.23 Other cervical disc displacement, cervicothoracic region; M48.02 Spinal stenosis, cervical region; G95.89 Other specified diseases of spinal cord; Z98.1 Arthrodesis status

== ENCOUNTER 2022-02-03 14:47 | Emergency (ER) | payer MEDICARE, BC ==
[~2022-02-03] VITALS: Ht 160 cm; Wt 50.9 kg
[2022-02-03 14:54] VITALS: TEMP 97.9
[2022-02-03 15:10] LABS: BASO % 0.7 % (0.0-2.0); EOS # 0.1 K/mm3 (0.0-0.7); EOS % 2.6 % (0.0-4.0); GRAN # 3.2 K/mm3 (1.4-6.5); HEMOGLOBIN 10.5 g/dl (12.5-16.0); LYMPH # 0.7 K/mm3 (1.2-3.4); MEAN CELL VOLUME 89 fl (80.0-100.0); MEAN CORPUSCULAR HEMOGLOBIN 29 pg (27-31); MEAN CORPUSCULAR HGB CONC 32 g/dl (33.0-37.0); MEAN PLATELET VOLUME 10.5 fl (7.4-10.4); MONO # 0.5 K/mm3 (0.1-0.6); MONO % 10.5 % (1.7-9.3); PLATELET COUNT 147 K/mm3 (130-400); RED BLOOD COUNT 3.65 M/mm3 (4.10-5.30); REDCELL DISTRIBUTION WIDTH-CV 15.9 % (11.5-14.5)
[2022-02-03 15:12] LABS: HEMATOCRIT 32.4 % (37.0-47.0)
[2022-02-03 15:28] LABS: ALBUMIN 3.6 gm/dL (3.4-4.8); BILIRUBIN,TOTAL 0.5 mg/dL (0.2-1.2); CALCIUM 9.2 mg/dL (8.4-10.2); CREATININE, serum 1.58 mg/dL (0.57-1.11); POTASSIUM 4.2 mmol/L (3.5-4.5); TOTAL PROTEIN 6.5 gm/dL (6.2-8.1)
[2022-02-03 15:34] LABS: TROPONIN-I 0.015 ng/mL (0.00-0.033)
[2022-02-03 16:35] VITALS: BP 142/70; PULSE 68
== END 2022-02-03 16:37 | disposition home or self-care (01) ==
LOC: COL.ER 14:47
PROVIDERS: Emergency Medicine
DX: R53.1 Weakness (principal); Z20.822 Contact with and (suspected) exposure to COVID-19